=== PATIENT | female | born 1970 | race Caucasian/White ===

== ENCOUNTER 2022-02-06 01:52 | Emergency (ER) | payer BC ==
[2022-02-06] MEDS ORDERED: Hydromorphone 1 mg/ml Injection IV ONE (02:09)
[2022-02-06] MEDS ORDERED: Sodium Chloride 0.9% 1000 ML 1,000 ML IV STA (02:09)
--- NOTE | 2022-02-06 02:09 | ERPHSYRPT ---
- History of Present Illness Time Seen by Provider: 02/06/22 02:06 Historian: patient, EMS Exam Limitations: no limitations Physician History: This is a 51-year-old overweight white female who had relatively sudden onset of abdominal pain that is generalized in location and associated vomiting x1. She has never had anything like this before. Patient has had a cholecystectomy in the past. All her other organs are in tact. Patient denies chest pain. She denies shortness of breath. She has bilateral flank pain as well. EMS provided the patient with intravenous Zofran in route to the hospital Timing/Duration: today Activities at Onset: none Quality: cramping, sharpness, stabbing Abdominal Pain Onset Location: generalized abdomen Pain Radiation: back Severity of Pain-Max: moderate Severity of Pain-Current: moderate Modifying Factors: Improves With: vomiting Associated Symptoms: nausea, vomiting, No chest pain, No diarrhea, No headache Previous symptoms: no prior history Allergies/Adverse Reactions: ciprofloxacin Adverse Reaction (Severe, Verified 02/06/22 02:16) Joint Aches effects mobility levofloxacin [From Levaquin] Adverse Reaction (Severe, Verified 02/06/22 02:16) Swelling of Joints affects mobility Home Medications: Amlodipine Besylate/Benazepril [Amlodipine-Benazepril 10-40 mg] 10 mg PO DAILY 02/06/22 [History] Duloxetine HCl 20 mg PO BID 02/06/22 [History] Empagliflozin/Metformin HCl [Synjardy 12.5-1,000 mg Tablet] 12.5 mg PO DAILY 02/06/22 [History] Meloxicam 7.5 mg PO DAILY 02/06/22 [History] Montelukast Sodium 10 mg [Singulair 10 MG] 10 mg PO DAILY 02/06/22 [History] hydroCHLOROthiazide [Hydrochlorothiazide] 12.5 mg PO DAILY 02/06/22 [History] Travel Risk - International Travel Have you traveled outside of the country in past 3 weeks: No - Coronavirus Screening Are you exhibiting any of the following symptoms?: No Close contact with a COVID-19 positive Pt in past 14-21 Days: No - Review of Systems Constitutional: No Symptoms Eyes: No Symptoms Ears, Nose, & Throat: No Symptoms Respiratory: No Symptoms Cardiac: No Symptoms Abdominal/Gastrointestinal: Abdominal Pain, Nausea, Vomiting, No Diarrhea, No Constipation Genitourinary Symptoms: No Symptoms Musculoskeletal: No Symptoms Skin: No Symptoms Neurological: No Symptoms Psychological: No Symptoms Endocrine: No Symptoms Hematologic/Lymphatic: No Symptoms Immunological/Allergic: No Symptoms All Other Systems: Reviewed and Negative - Past Medical History Pertinent Past Medical History: Yes - Past Surgical History Past Surgical History: Yes Gastrointestinal: Cholecystectomy - Nursing Vital Signs Nursing Vital Signs: Initial Vital Signs Temperature 98.5 F 02/06/22 01:56 Pulse Rate 70 02/06/22 01:56 Respiratory Rate 20 02/06/22 01:56 Blood Pressure 128/100 02/06/22 01:56 O2 Sat by Pulse Oximetry 99 02/06/22 01:56 Pain Scale Pain Intensity 0 - Physical Exam General Appearance: mild distress, moderate distress, alert, anxiety, obese Eye Exam: PERRL/EOMI, eyes nml inspection Ears, Nose, Throat Exam: normal ENT inspection, moist mucous membranes Neck Exam: normal inspection, non-tender, supple, full range of motion Respiratory Exam: normal breath sounds, lungs clear, airway intact, No chest tenderness, No respiratory distress Cardiovascular Exam: regular rate/rhythm, normal heart sounds, normal peripheral pulses Gastrointestinal/Abdomen Exam: soft, normal bowel sounds, tenderness, guarding (And realized) Pelvic Exam: not done Rectal Exam: not done Back Exam: normal inspection, normal range of motion, No CVA tenderness, No vertebral tenderness Extremity Exam: normal inspection, normal range of motion, pelvis stable Neurologic Exam: alert, oriented x 3, cooperative, supervisor cold rolling II-XII nml as tested, normal mood/affect, sensation nml Skin Exam: normal color, warm, dry Lymphatic Exam: No adenopathy SpO2 Interpretation: normal O2 Delivery: Room Air - Course Nursing assessment & vital signs reviewed: Yes Ordered Tests: Active Orders 24 hr Category Date Time Status IV Insertion STAT Care 02/06/22 02:09 Active ABDOMEN AND PELVIS W/0 CONTRAS [CT] Stat Exams 02/06/22 03:21 Taken AMYLASE Stat Lab 02/06/22 02:25 Completed CBC W DIFF Stat Lab 02/06/22 02:25 Completed CMP Stat Lab 02/06/22 02:25 Completed HCG QUALITATIVE,SERUM Stat Lab 02/06/22 02:49 Completed LIPASE Stat Lab 02/06/22 02:25 Completed Lactic Acid Stat Lab 02/06/22 02:09 Completed Medication Summary Generic Name Dose Route Start Last Admin Trade Name Pratibha PRN Reason Stop Dose Admin Sodium Chloride 500 mls @ 500 mls/hr 02/06/22 05:36 02/06/22 05:37 Sodium Chloride 0.9% 500 Ml IV 02/06/22 06:35 500 mls/hr .Q1H ONE Administration Discontinued Medications Generic Name Dose Route Start Last Admin Trade Name Pratibha PRN Reason Stop Dose Admin Hydromorphone HCl 1 mg 02/06/22 02:09 02/06/22 02:28 Hydromorphone 1 Mg/1ml Inj 1 Mg/Ml Syringe IV 02/06/22 02:10 1 mg STAT ONE Administration Hydromorphone HCl Confirm 02/06/22 02:15 Hydromorphone 1 Mg/1ml Inj 1 Mg/Ml Syringe Administered 02/06/22 02:16 Dose 1 mg .ROUTE .STK-MED ONE Sodium Chloride 1,000 mls @ 999 mls/hr 02/06/22 02:09 02/06/22 03:55 Sodium Chloride 0.9% 1000 Ml IV 02/06/22 03:09 Infused .Q1H1M STA Infusion Sodium Chloride Confirm 02/06/22 02:15 Sodium Chloride 0.9% 1000 Ml Administered 02/06/22 02:16 Dose 1,000 mls @ ud .ROUTE .STK-MED ONE Sodium Chloride Confirm 02/06/22 05:33 Sodium Chloride 0.9% 500 Ml Administered 02/06/22 05:34 Dose 500 mls @ ud IV .STK-MED ONE Ketorolac Tromethamine Confirm 02/06/22 06:17 Ketorolac Tromethamine 30 Mg/Ml Inj Administered 02/06/22 06:18 Dose 30 mg .ROUTE .STK-MED ONE Metronidazole 500 mg 02/06/22 06:11 02/06/22 06:14 Metronidazole 500 Mg Tablet PO 02/06/22 06:12 500 mg STAT ONE Administration Metronidazole Confirm 02/06/22 06:12 Metronidazole 500 Mg Tablet Administered 02/06/22 06:13 Dose 500 mg .ROUTE .STK-MED ONE Lab/Rad Data: Laboratory Result Diagrams 02/06/22 02:25 02/06/22 02:25 Laboratory Results 03/19/22 03/19/22 03/19/22 Range/Units 04:39 02:49 02:25 WBC (4.0-10.5) K/mm3 RBC (4.1-5.4) M/mm3 Hgb (12.0-16.0) gm/dl Hct (35-47) % MCV (78-100) fl MCH (26-32) pg MCHC (32-36) g/dl RDW (11.5-14.0) % Plt Count (150-450) K/mm3 MPV (7.5-11.0) fl Gran % (36.0-66.0) % Eos # (Auto) (0-0.5) Absolute Lymphs (auto) (1.0-4.6) Absolute Monos (auto) (0.0-1.3) Lymphocytes % (24.0-44.0) % Monocytes % (0.0-12.0) % Eosinophils % (0.00-5.0) % Basophils % (0.0-0.4) % Absolute Granulocytes (1.4-6.9) Basophils # (0-0.4) Sodium 137 (137-145) mmol/L Potassium 3.4 L (3.5-5.1) mmol/L Chloride 104 (98-107) mmol/L Carbon Dioxide 20 L (22-30) mmol/L Anion Gap 16.7 H (5-15) MEQ/L BUN 18 H (7-17) mg/dL Creatinine 0.59 (0.52-1.04) mg/dL Estimated GFR > 60.0 ML/MIN Glucose 144 H (74-106) mg/dL Lactic Acid (0.4-2.0) Calcium 9.3 (8.4-10.2) mg/dL Total Bilirubin 0.50 (0.2-1.3) mg/dL AST 23 (14-36) U/L ALT 34 (0-35) U/L Alkaline Phosphatase 48 (38-126) U/L Serum Total Protein 7.1 (6.3-8.2) g/dL Albumin 4.3 (3.5-5.0) g/dL Amylase 60 (30-110) U/L Lipase 206 (23-300) U/L Serum , Qual NEGATIVE (Negative) Urinalys Dipstick Clnc MAIN LAB Urine Color YELLOW (YELLOW) Urine Appearance CLEAR (CLEAR) Urine pH 6.0 (5-6) Ur Specific [place] 1.020 (1.005-1.025) POC Urine Protein Conf NEGATIVE (Negative) Urine Ketones MODERATE-40 (NEGATIVE) Urine Nitrite NEGATIVE (NEGATIVE) Urine Bilirubin NEGATIVE (NEGATIVE) Urine Urobilinogen 0.2 (0-1) mg/dL Urine Leukocytes NEGATIVE (NEGATIVE) Urine WBC (Auto) NONE (0-5) /HPF Urine RBC (Auto) NONE (0-2) /HPF U Epithel Cells (Auto) NONE (FEW) /HPF Urine Bacteria (Auto) NONE (NEGATIVE) /HPF Urine RBC NEGATIVE (0-5) Akbar/ul Ur Culture Indicated? NO Urine Glucose 500 (NEGATIVE) mg/dL 02/06/22 02/06/22 Range/Units 02:25 02:09 WBC 7.2 (4.0-10.5) K/mm3 RBC 4.90 (4.1-5.4) M/mm3 Hgb 13.9 (12.0-16.0) gm/dl Hct 40.8 (35-47) % MCV 83.3 (78-100) fl MCH 28.4 (26-32) pg MCHC 34.1 (32-36) g/dl RDW 13.8 (11.5-14.0) % Plt Count 301 (150-450) K/mm3 MPV 10.5 (7.5-11.0) fl Gran % 72.9 H (36.0-66.0) % Eos # (Auto) 0.11 (0-0.5) Absolute Lymphs (auto) 1.30 (1.0-4.6) Absolute Monos (auto) 0.52 (0.0-1.3) Lymphocytes % 18.2 L (24.0-44.0) % Monocytes % 7.3 (0.0-12.0) % Eosinophils % 1.5 (0.00-5.0) % Basophils % 0.1 (0.0-0.4) % Absolute Granulocytes 5.21 (1.4-6.9) Basophils # 0.01 (0-0.4) Sodium (137-145) mmol/L Potassium (3.5-5.1) mmol/L Chloride (98-107) mmol/L Carbon Dioxide (22-30) mmol/L Anion Gap (5-15) MEQ/L BUN (7-17) mg/dL Creatinine (0.52-1.04) mg/dL Estimated GFR ML/MIN Glucose (74-106) mg/dL Lactic Acid 1.2 (0.4-2.0) Calcium (8.4-10.2) mg/dL Total Bilirubin (0.2-1.3) mg/dL AST (14-36) U/L ALT (0-35) U/L Alkaline Phosphatase (38-126) U/L Serum Total Protein (6.3-8.2) g/dL Albumin (3.5-5.0) g/dL Amylase (30-110) U/L Lipase (23-300) U/L Serum , Qual (Negative) Urinalys Dipstick Clnc Urine Color (YELLOW) Urine Appearance (CLEAR) Urine pH (5-6) Ur Specific [place] (1.005-1.025) POC Urine Protein Conf (Negative) Urine Ketones (NEGATIVE) Urine Nitrite (NEGATIVE) Urine Bilirubin (NEGATIVE) Urine Urobilinogen (0-1) mg/dL Urine Leukocytes (NEGATIVE) Urine WBC (Auto) (0-5) /HPF Urine RBC (Auto) (0-2) /HPF U Epithel Cells (Auto) (FEW) /HPF Urine Bacteria (Auto) (NEGATIVE) /HPF Urine RBC (0-5) Akbar/ul Ur Culture Indicated? Urine Glucose (NEGATIVE) mg/dL - Progress Progress: improved Progress Note: 02/06/22 06:24 CAT scan of the abdomen and pelvis shows minimal soft tissue stranding or minimal fluid low pelvis. Focal nonair-containing soft tissue accentuation of the cecum near the terminal ileum is nonspecific measuring 3.9 cm. Minor distal colonic diverticuli. Nodules left lower lobe. Consider optional CT chest in 12 months. The above findings were discussed in detail with the patient and her spouse. Medical decision making: This patient states that her abdominal pain has improved. The CAT scan shows some nonspecific inflammatory, possible infectious findings. In addition there is nonspecific soft tissue accentuation of the cecum near the terminal ileum. We will place her on Flagyl antibiotics orally. Patient states that she has had Percocet in the past and would use this medication. She wants to avoid Stov[place]/hydrocodone medications. She will follow up with her primary care provider for repeat CAT scan of the abdomen pelvis and repeat CAT scan of the chest to assess lung nodules. Patient did not offer that she had a colonoscopy approximately a year to year and a half ago which showed multiple polyps. Patient was advised to contact her primary care physician on 02/08/2022 to make an appointment for follow-up and to discuss the CAT scan findings and to make arrangements for follow-up colonoscopy and repeat CAT scans as indicated. Counseled pt/family regarding: lab results, diagnosis, need for follow-up, rad results - Departure Departure Disposition: Home Clinical Impression: Free fluid in pelvis, Cecal lesion Condition: Stable Critical Care Time: No Referrals: SAMREEN SEPULVEDA MD [Primary Care Provider] - Follow up/PCP as directed Additional Instructions: Drink plenty of fluids. Take your medication as prescribed. Call your prescribing physician's office on 02/08/2022 to make an appointment for follow-up and discuss the CAT scan findings and to arrange repeat colonoscopy and CAT scans as indicated. Prescriptions: Oxycodone HCl/Acetaminophen [Percocet 5-325 mg Tablet] 1 each PO Q8H PRN PRN #6 tablet MDD 3 PRN Reason: Moderate To Severe Pain Metronidazole 500 mg [Flagyl 500 MG] 500 mg PO TID #21 tablet
[2022-02-06] MEDS ORDERED: Hydromorphone 1 mg/ml Injection ONE (02:15)
[2022-02-06] MEDS ORDERED: Sodium Chloride 0.9% 1000 ML 1,000 ML ONE (02:15)
[2022-02-06 02:33] LABS: Absolute Neutrophil Ct (ANC) 5.21 (1.4-6.9); Basophil (Absolute #) 0.01 (0-0.4); Eosinophil % 1.5 % (0.00-5.0); Eosinophil (Absolute #) 0.11 (0-0.5); Hematocrit 40.8 % (35-47); Hemoglobin 13.9 gm/dl (12.0-16.0); Lymphocytes % 18.2 % (24.0-44.0); Mean Cell Volume 83.3 fl (78-100); Mean Corpuscular Hemoglobin 28.4 pg (26-32); Mean Corpuscular Hgb Concent. 34.1 g/dl (32-36); Mean Platelet Volume 10.5 fl (7.5-11.0); Monocyte (Absolute #) 0.52 (0.0-1.3); Monocytes % 7.3 % (0.0-12.0); Neutrophil % 72.9 % (36.0-66.0); Platelet Count 301 K/mm3 (150-450); Red Cell Distribution Width 13.8 % (11.5-14.0); White Blood Count 7.2 K/mm3 (4.0-10.5)
[2022-02-06 02:46] LABS: ALBUMIN 4.3 g/dL (3.5-5.0); ALKALINE PHOSPHATASE 48 U/L (38-126); AMYLASE 60 U/L (30-110); ANION GAP 16.7 MEQ/L (5-15); BLOOD UREA NITROGEN 18 mg/dL (7-17); CHLORIDE 104 mmol/L (98-107); Calcium 9.3 mg/dL (8.4-10.2); Carbon Dioxide 20 mmol/L (22-30); Creatinine 1 0.59 mg/dL (0.52-1.04); EST GLOMERULAR FILTRATION RATE > 60.0 ML/MIN; Glucose 144 mg/dL (74-106); LIPASE 206 U/L (23-300); Potassium 3.4 mmol/L (3.5-5.1); SGOT/AST 23 U/L (14-36); SGPT/ALT 34 U/L (0-35); SODIUM 137 mmol/L (137-145); Total Protein 7.1 g/dL (6.3-8.2)
[2022-02-06 05:01] VITALS: O2SAT 97
[2022-02-06 05:23] LABS: Appearance CLEAR (CLEAR); Bilirubin NEGATIVE (NEGATIVE); Dipstick done @ ? MAIN LAB; Glucose 500 mg/dL (NEGATIVE); Ketones MODERATE-40 (NEGATIVE); Nitrite NEGATIVE (NEGATIVE); Protein,Urine Dip NEGATIVE (Negative); RBC NEGATIVE Ery/ul (0-5); Urobilinogen 0.2 mg/dL (0-1)
[2022-02-06] MEDS ORDERED: Sodium Chloride 0.9% 500 ML 500 ML IV ONE ×2 (05:33→05:36)
[2022-02-06] MEDS ORDERED: Flagyl 500 MG PO ONE (06:11)
[2022-02-06] MEDS ORDERED: Flagyl 500 MG ONE (06:12)
[2022-02-06] MEDS ORDERED: TORAdol 30 mg Injection ONE (06:17)
[2022-02-06 06:25] VITALS: BP 100/68; PULSE 86
[2022-02-06] MEDS ORDERED: TORAdol 30 mg Injection IV ONE (06:32)
--- NOTE | 2022-02-06 09:00 | XRAY ---
Indication: Abdomen pain and nausea. Multiple contiguous axial images obtained through the abdomen and pelvis without contrast. Comparison: None Lung bases demonstrates small left lower lobe calcified granuloma. No infiltrate or effusion. Heart not enlarged. Noncontrasted stomach and bowel loops nonobstructed with normal appendix. Minimal proximal sigmoid diverticulosis. Previous cholecystectomy. No free fluid/air. Left mid kidney demonstrates nonobstructing punctate calculus. Remaining liver, pancreas, spleen, adrenal glands, kidneys, ureters, bladder, uterus, and aorta appear unremarkable for noncontrast exam. Osseous structures intact. No ventral or inguinal hernias. Impression: 1. Nonobstructing left renal punctate calculus and minimal sigmoid diverticulosis. 2. Remaining CT abdomen/pelvis without contrast exam is negative. Comment: Preliminary interpretation made by [facility]. No critical discrepancy.
== END 2022-02-06 06:45 ==
LOC: ED 01:52
DX: K63.89 Other specified diseases of intestine (principal); R18.8 Other ascites; R10.84 Generalized abdominal pain; R11.2 Nausea with vomiting, unspecified; Z79.891 Long term (current) use of opiate analgesic; Z79.899 Other long term (current) drug therapy
CPT/HCPCS: 36000; 36415; 74176; 80053; 81015; 81025; 82150; 83605; 83690; 85025; 96360; 96361; 96374; 96375; 99284; J1170; J1885; A9270-GY

== ENCOUNTER 2022-07-30 11:24 | Emergency (ER) | payer BC ==
--- NOTE | 2022-07-30 12:07 | XRAY ---
Indication: Headache 1 month. History of migraines. Multiple contiguous axial images obtained through the head without contrast. Comparison: None Age-appropriate global atrophy. Tiny remote lacunar infarct left basal ganglia. No acute intracranial hemorrhage, abnormal extra-axial fluid collection, or mass effect. Fourth ventricle is midline without hydrocephalus. Jones-white matter differentiation preserved. Bony calvarium intact. Visualized paranasal sinuses and mastoid air cells are clear. Impression: Tiny remote lacunar infarct left basal ganglia. Remaining CT head without contrast exam is negative.
--- NOTE | 2022-07-30 12:20 | ERPHSYRPT ---
- History of Present Illness Source: patient Exam Limitations: no limitations Patient Subjective Stated Complaint: C/O headache and eye pressure. States had COVID on 06/28/22 and the headache has never resolved. States she has been to see Dr. Sepulveda 2-3 times since being diagnosed with COVID; the last time was yesterday, 07/29/22. Patient also went to the [facility] 2 days ago on 07/28/22. Triage Nursing Assessment: Patient ambulated back to ED without difficulties. S He is alert and oriented. No SOB. Pupils equal. Denies head injury, fall, nausea, vomiting. Skin tone normal. Denies any changes in her vision. Physician History: 51 yo WF w JACOBSON x 1month. Pt developed pain after being diagnosed w CV19. Pain is R occipital/temporal and is 8 on scale. It is described as throbbing, and light seems to make the pain worse. She has nausea wo vomiting/fever. No focal weakness is described. Pt has a h/o MGHA but has not had one in many years. T rauma is denied. Timing/Duration: other (1 month) Quality: throbbing Head Pain Location: temporal (Right), occipital Recent Head Trauma: occasional headaches Modifying Factors: Improves With: exposure to light (Worse w light) Associated Symptoms: sensitive to light, No confusion, No dizziness, No fatigue, No facial pain, No fever/chills, No flushing, No light-headedness, No loss of consciousness, No nausea/vomiting, No nasal congestion, No nasal drainage, No neck pain, No numbness in legs/feet, No rash, No sweating, No scotoma, No seizures, No sinus infection, No speech problems, No stiff neck, No trouble walking, No vision changes, No visual disturbance, No weakness Previous symptoms: same symptoms as today Allergies/Adverse Reactions: clonazepam [From Klonopin] Allergy (Verified 07/30/22 11:35) ciprofloxacin Adverse Reaction (Severe, Verified 07/30/22 11:35) Joint Aches effects mobility levofloxacin [From Levaquin] Adverse Reaction (Severe, Verified 07/30/22 11:35) Swelling of Joints affects mobility Home Medications: Amlodipine Besylate/Benazepril [Amlodipine-Benazepril 10-40 mg] 10 mg PO DAILY 02/06/22 [History] Duloxetine HCl 20 mg PO BID 02/06/22 [History] Empagliflozin/Metformin HCl [Synjardy 12.5-1,000 mg Tablet] 12.5 mg PO DAILY [History] Meloxicam 7.5 mg PO DAILY 02/06/22 [History] Montelukast Sodium 10 mg [Singulair 10 MG] 10 mg PO DAILY 02/06/22 [History] hydroCHLOROthiazide [Hydrochlorothiazide] 12.5 mg PO DAILY 02/06/22 [History] Empagliflozin/Metformin HCl [Synjardy Xr 12.5-1,000 mg Tab] 1 tab PO DAILY 08/12 [History] Metoprolol Succinate 25 mg Xl* [Toprol-Xl 25MG Tablets] 1 tab PO DAILY 07/30/22 [History] Tizanidine HCl 4 mg [Zanaflex 4 MG] 1 tab PO Q8H PRN PRN 07/30/22 [History] Hx Tetanus, Diphtheria Vaccination/Date Given: Yes Hx Influenza Vaccination/Date Given: No Hx Pneumococcal Vaccination/Date Given: No Immunizations Up to Date: Yes Travel Risk - International Travel Have you traveled outside of the country in past 3 weeks: No - Coronavirus Screening Are you exhibiting any of the following symptoms?: Yes Symptoms: Headaches/Body Aches/Fatigue Close contact with a COVID-19 positive Pt in past 14-21 Days: No - Vaccine Status Have you recieved a Covid-19 vaccination: Yes Language Pathologist: Moderna - Vaccination Dates Date of 2cond Vaccination (if applicable): 2021 - Review of Systems Constitutional: No Symptoms Eyes: No Symptoms Ears, Nose, & Throat: No Symptoms Respiratory: No Symptoms Cardiac: No Symptoms Abdominal/Gastrointestinal: No Symptoms Genitourinary Symptoms: No Symptoms Musculoskeletal: No Symptoms Skin: No Symptoms Neurological: No Symptoms, Headache Psychological: No Symptoms Endocrine: No Symptoms Hematologic/Lymphatic: No Symptoms Immunological/Allergic: No Symptoms - Past Medical History Pertinent Past Medical History: Yes Neurological History: Migraines ENT History: No Pertinent History Cardiac History: Hypertension Respiratory History: No Pertinent History Endocrine Medical History: Diabetes Type II Musculoskeletal History: No Pertinent History GI Medical History: Gallbladder Disease, Polyps History: No Pertinent History Psycho-Social History: Anxiety Female Reproductive Disorders: Endometriosis Other Medical History: vaginal prolapse, retrocele, cystocele - Past Surgical History Past Surgical History: Yes Neuro Surgical History: No Pertinent History Cardiac: No Pertinent History Respiratory: No Pertinent History Gastrointestinal: Cholecystectomy Genitourinary: Other Musculoskeletal: No Pertinent History Female Surgical History: No Pertinent History Other Surgical History: cystocele, retrocele - Social History Smoking Status: Never smoker Exposure to second hand smoke: No Drug Use: none Patient Lives Alone: No Significant Family History: no pertinent family hx - Nursing Vital Signs Nursing Vital Signs: Initial Vital Signs Temperature 98.2 F 07/30/22 11:36 Pulse Rate 68 07/30/22 11:36 Respiratory Rate 16 07/30/22 11:36 Blood Pressure 129/94 07/30/22 11:36 O2 Sat by Pulse Oximetry 97 07/30/22 11:36 Pain Scale Pain Intensity 4 - Physical Exam General Appearance: no apparent distress Eye Exam: PERRL/EOMI, eyes nml inspection, other (Optic disc's sharp) Ears, Nose, Throat Exam: normal ENT inspection, TMs normal, pharynx normal, moist mucous membranes Neck Exam: normal inspection, non-tender, supple, full range of motion, No meningismus, No mass, No Brudzinski, No Kernig's, No carotid bruit Respiratory Exam: normal breath sounds, lungs clear, airway intact Cardiovascular Exam: regular rate/rhythm, normal heart sounds, normal peripheral pulses, capillary refill <2 sec, No murmur Gastrointestinal/Abdominal Exam: soft, normal bowel sounds, No tenderness Back Exam: normal inspection, normal range of motion, No CVA tenderness, No vertebral tenderness Extremity Exam: normal inspection, normal range of motion, pelvis stable Mental Status Exam: alert, oriented x 3, cooperative salesperson trailers and motor homes Exam: normal hearing, normal speech, PERRL, No abnormal eye position, No abnormal gag reflex, No abnormal pupil position, No facial asymmetry Coordination/Gait Exam: normal finger to nose, normal gait, normal cerebellar function, negative Romberg's sign Motor/Sensory Exam: no motor deficit, no sensory deficit, no pronator drift, negative Babinski's sign DTR Exam: bicep (R): 2+, bicep (L): 2+ Skin Exam: normal color, warm, dry, No rash Lymphatic Exam: No adenopathy SpO2 Interpretation: normal SpO2: 97 - Course Nursing assessment & vital signs reviewed: Yes - CT Exams Head CT Interpretation: Discussed w/radiologist (Tiny remote infarct L basal ganglia) Ordered Tests: Active Orders 24 hr Category Date Time Status HEAD WITHOUT CONTRAST [CT] Stat Exams 07/30/22 11:42 Completed CBC W DIFF Stat Lab 07/30/22 13:28 Completed Medication Summary Discontinued Medications Generic Name Dose Route Start Last Admin Trade Name Leonardoq PRN Reason Stop Dose Admin Hydromorphone HCl 1 mg 07/30/22 15:31 07/30/22 15:44 Hydromorphone 1 Mg/1ml Inj 1 Mg/Ml Syringe IM 07/30/22 15:32 1 mg STAT ONE Administration Hydromorphone HCl Confirm 07/30/22 15:40 Hydromorphone 1 Mg/1ml Inj 1 Mg/Ml Syringe Administered 07/30/22 15:41 Dose 1 mg .ROUTE .STK-MED ONE Ketorolac Tromethamine 30 mg 07/30/22 12:28 07/30/22 12:44 Ketorolac Tromethamine 30 Mg/Ml Inj IM 07/30/22 12:29 30 mg STAT ONE Administration Ketorolac Tromethamine Confirm 07/30/22 12:43 Ketorolac Tromethamine 30 Mg/Ml Inj Administered 07/30/22 12:44 Dose 30 mg .ROUTE .STK-MED ONE Prochlorperazine Edisylate 10 mg 07/30/22 12:29 07/30/22 12:44 Prochlorperazine Edisylate 10 Mg/2 Ml Vial IM 07/30/22 12:30 10 mg STAT ONE Administration Prochlorperazine Edisylate Confirm 07/30/22 12:43 Prochlorperazine Edisylate 10 Mg/2 Ml Vial Administered 07/30/22 12:44 Dose 10 mg .ROUTE .STK-MED ONE Sumatriptan Succinate 6 mg 07/30/22 14:31 07/30/22 14:55 Sumatriptan Succinate 6 Mg/0.5 Ml Vial SQ 07/30/22 14:32 6 mg STAT STA Administration Sumatriptan Succinate Confirm 07/30/22 14:45 Sumatriptan Succinate 6 Mg/0.5 Ml Vial Administered 07/30/22 14:46 Dose 6 mg SQ .STK-MED ONE Lab/Rad Data: Laboratory Result Diagrams 07/30/22 13:28 07/30/22 13:28 Laboratory Results 07/30/22 07/30/22 07/30/22 Range/Units 13:28 13:28 13:28 WBC 5.3 (4.0-10.5) x10^3/uL RBC 5.00 (4.1-5.4) x10^6/uL Hgb 13.9 (12.0-16.0) g/dL Hct 42.0 (35-47) % MCV 84.0 (78-100) fL MCH 27.8 (26-32) pg MCHC 33.1 (32-36) g/dL RDW 13.2 (11.5-14.0) % Plt Count 288 (150-450) x10^3/uL MPV 10.4 (7.5-11.0) fL Gran % 54.9 (36.0-66.0) % Immature Gran % (Auto) 0.2 (0.00-0.4) % Nucleat RBC Rel Count 0.4 H (0.00-0.1) % Eos # (Auto) 0.12 (0-0.5) x10^3/uL Immature Gran # (Auto) 0.01 (0.00-0.03) x10^3u/L Absolute Lymphs (auto) 1.77 (1.0-4.6) x10^3/uL Absolute Monos (auto) 0.48 (0.0-1.3) x10^3/uL Absolute Nucleated RBC 0.02 H (0.00-0.01) x10^3u/L Lymphocytes % 33.1 (24.0-44.0) % Monocytes % 9.0 (0.0-12.0) % Eosinophils % 2.2 (0.00-5.0) % Basophils % 0.6 (0.0-0.4) % Absolute Granulocytes 2.93 (1.4-6.9) x10^3/uL Basophils # 0.03 (0-0.4) x10^3/uL Sodium Direct 140 (138-146) mmol/L Potassium 3.9 (3.5-4.9) mmol/L Chloride 104 (98-109) mmol/L Carbon Dioxide 27 (24-29) mmol/L Venous BUN 21 (8-26) mg/dL Creatinine 0.5 L (0.6-1.3) mg/dL Glucose 145 H (70-105) mg/dL Ionized Calcium 1.18 (1.12-1.32) mmol/L Influenza Type A Ag NEGATIVE (NEGATIVE) Influenza Type B Ag NEGATIVE (NEGATIVE) RSV (PCR) NEGATIVE (Negative) SARS-CoV-2 (PCR) NEGATIVE (NEGATIVE) - Progress Progress Note: 07/30/22 15:34 30mg IM Toradol/10mg IM Compazine w mild improvement in pain Pain escalated, so 6mg sq Imitrex given which seemed to increase her pain Discussed risks/benefits of lumbar puncture w pt and she refused 07/30/22 16:29 Pt's pain greatly improved w 1mg IM dilaudid 07/30/22 17:26 Pt wo fever/focal weakness/nuchal rigidity during entire visit. Optic disc's sharp. Counseled pt/family regarding: lab results, diagnosis, need for follow-up, rad results - Departure Departure Disposition: Home Clinical Impression: Migraine Condition: Stable Critical Care Time: No Referrals: SAMREEN SEPULVEDA MD [Primary Care Provider] - Follow up/PCP as directed Instructions: Headache, Adult (DC) Additional Instructions: Follow up with Dr. Sepulveda on Tuesday Return to ER for increasing pain, temperature greater than 100.5, or focal weakness
[2022-07-30] MEDS ORDERED: TORAdol 30 mg Injection IM ONE (12:28)
[2022-07-30] MEDS ORDERED: Compazine 10 MG/2 ML IM ONE (12:29)
[2022-07-30] MEDS ORDERED: Compazine 10 MG/2 ML ONE (12:43)
[2022-07-30] MEDS ORDERED: TORAdol 30 mg Injection ONE (12:43)
[2022-07-30 13:38] LABS: Absolute Neutrophil Ct (ANC) 2.93 x10^3/uL (1.4-6.9); Basophil (Absolute #) 0.03 x10^3/uL (0-0.4); Eosinophil % 2.2 % (0.00-5.0); Eosinophil (Absolute #) 0.12 x10^3/uL (0-0.5); Hemoglobin 13.9 g/dL (12.0-16.0); Lymphocyte (Absolute #) 1.77 x10^3/uL (1.0-4.6); Lymphocytes % 33.1 % (24.0-44.0); Mean Corpuscular Hemoglobin 27.8 pg (26-32); Mean Corpuscular Hgb Concent. 33.1 g/dL (32-36); Mean Platelet Volume 10.4 fL (7.5-11.0); Monocyte (Absolute #) 0.48 x10^3/uL (0.0-1.3); Neutrophil % 54.9 % (36.0-66.0); Platelet Count 288 x10^3/uL (150-450); Red Cell Distribution Width 13.2 % (11.5-14.0); White Blood Count 5.3 x10^3/uL (4.0-10.5)
[2022-07-30 14:01] LABS: INFLUENZA A NEGATIVE (NEGATIVE); INFLUENZA B NEGATIVE (NEGATIVE); RESPIRATORY SYNCTIAL VIRUS NEGATIVE (Negative); SARS-CoV-2 Xpert Express NEGATIVE (NEGATIVE)
[2022-07-30 14:25] LABS: ISTAT K 3.9 mmol/L (3.5-4.9)
[2022-07-30 14:27] LABS: ISTAT CREA 0.5 mg/dL (0.6-1.3)
[2022-07-30] MEDS ORDERED: Imitrex 6 MG/0.5 ML SQ STA (14:31)
[2022-07-30] MEDS ORDERED: Imitrex 6 MG/0.5 ML SQ ONE (14:45)
[2022-07-30] MEDS ORDERED: Hydromorphone 1 mg/ml Injection IM ONE (15:31)
[2022-07-30 15:36] VITALS: O2SAT 97
[2022-07-30] MEDS ORDERED: Hydromorphone 1 mg/ml Injection ONE (15:40)
[2022-07-30 16:26] VITALS: BP 134/74; PULSE 65
== END 2022-07-30 16:46 | disposition home or self-care (01) ==
LOC: ED 11:24
DX: G43.909 Migraine, unspecified, not intractable, without status migrainosus (principal); R11.0 Nausea; I10 Essential (primary) hypertension; E11.9 Type 2 diabetes mellitus without complications; Z79.84 Long term (current) use of oral hypoglycemic drugs; Z79.899 Other long term (current) drug therapy; Z86.16 Personal history of COVID-19
CPT/HCPCS: 0241U; 36415; 70450; 80047; 85025; 96372; 99284; J1170; J1885; J3030

== ENCOUNTER 2024-03-07 16:25 | Observation (INO) | payer BC ==
--- NOTE | 2024-03-07 16:55 | ERPHSYRPT ---
<CESIA DIAZ - Last Filed: 03/07/24 20:39> - History of Present Illness Source: patient Exam Limitations: no limitations Patient Subjective Stated Complaint: dizzy, low blood pressure 80/50, headache, weakness since 1030 Triage Nursing Assessment: patient is alert and oriented, ambulated with slow steady gait, speech is a little slow. no short of breath noted. Hx Tetanus, Diphtheria Vaccination/Date Given: Yes Hx Influenza Vaccination/Date Given: No Hx Pneumococcal Vaccination/Date Given: No Immunizations Up to Date: Yes <TIN LANDIN - Last Filed: 03/08/24 14:30> - History of Present Illness Time Seen by Provider: 03/07/24 16:27 Physician History: 53 years old with history of poorly controlled migraine, fibromyalgia presented in the ER with complains of headache starting around 10 AM today frontal and occipital area with associated dizziness and lightheadedness. Patient reports room spinning sensation with opening her eyes and better with resting and lying down. Denies associated numbness tingling or weakness. Reports nausea but no vomiting. She did not have any visual disturbance or difficulty speech. Reports her headache feels a little different than her routine and usually is not associated with dizziness. She has some sinus congestion and minimal nonproductive cough but no fever or chills. She checked her blood pressure e arlier and it was in the 80s, improved on its own on presentation in the ER in 120s. She feels weak fatigued tired and dehydrated. (TIN LANDIN) Allergies/Adverse Reactions: clonazepam [From Klonopin] Allergy (Verified 07/30/22 11:35) ciprofloxacin Adverse Reaction (Severe, Verified 07/30/22 11:35) Joint Aches effects mobility levofloxacin [From Levaquin] Adverse Reaction (Severe, Verified 07/30/22 11:35) Swelling of Joints affects mobility Home Medications: Montelukast Sodium 10 mg [Singulair 10 MG] 10 mg PO DAILY 02/06/22 [History] hydroCHLOROthiazide [Hydrochlorothiazide] 12.5 mg PO DAILY 02/06/22 [History] Amlodipine Besylate/Benazepril [Amlodipine-Benazepril 5-20 mg] 1 cap PO DAILY 03/07/24 [History] Duloxetine HCl 20 mg PO DAILY 03/07/24 [History] Empagliflozin [Jardiance] 10 mg PO DAILY 03/07/24 [History] Insulin Degludec [Tresiba Flextouch U-200] 30 units SQ HS 03/07/24 [History] Metoprolol Succinate 50 mg [Toprol Xl 50 MG] 50 mg PO DAILY 03/07/24 [History] Pregabalin 150 mg PO BID 03/07/24 [History] Semaglutide [Ozempic] 1 mg SQ WEEKLY 03/07/24 [History] Travel Risk - International Travel Have you traveled outside of the country in past 3 weeks: No - Emerging Infectious Disease Are you exhibiting symptoms associated with any current EIDs: No <TIN LANDIN - Last Filed: 03/08/24 14:30> - Review of Systems Constitutional: Fatigue, Weakness Eyes: No Symptoms Ears, Nose, & Throat: No Symptoms Respiratory: Cough Cardiac: No Symptoms Abdominal/Gastrointestinal: Nausea Genitourinary Symptoms: No Symptoms Musculoskeletal: Myalgias Neurological: Dizziness, Headache Psychological: No Symptoms Endocrine: No Symptoms Hematologic/Lymphatic: No Symptoms Immunological/Allergic: No Symptoms <TIN LANDIN - Last Filed: 03/08/24 14:30> - Past Medical History Pertinent Past Medical History: Yes Neurological History: Migraines ENT History: No Pertinent History Cardiac History: High Cholesterol, Hypertension Respiratory History: No Pertinent History Endocrine Medical History: Diabetes Type II Musculoskeletal History: No Pertinent History GI Medical History: GERD, Gallbladder Disease, Polyps History: No Pertinent History Psycho-Social History: Anxiety Female Reproductive Disorders: Endometriosis Other Medical History: vaginal prolapse, retrocele, cystocele - Past Surgical History Past Surgical History: Yes Neuro Surgical History: No Pertinent History Cardiac: No Pertinent History Respiratory: No Pertinent History Gastrointestinal: Cholecystectomy Genitourinary: Other Musculoskeletal: No Pertinent History Female Surgical History: Hysterectomy Other Surgical History: cystocele, retrocele Significant Family History: no pertinent family hx - Female History Hx Last Menstrual Period: hysterectomy Hx Now: No - Social History Smoking Status: Never smoker Exposure to second hand smoke: No Drug Use: none Patient Lives Alone: No <TIN LANDIN - Last Filed: 03/08/24 14:30> - Physical Exam General Appearance: no apparent distress, alert Eye Exam: PERRL/EOMI Ears, Nose, Throat Exam: normal ENT inspection, TMs normal, pharynx normal, moist mucous membranes Neck Exam: normal inspection, non-tender, supple, full range of motion Respiratory Exam: normal breath sounds, lungs clear Cardiovascular Exam: regular rate/rhythm, normal heart sounds Gastrointestinal/Abdominal Exam: soft, normal bowel sounds, No tenderness Back Exam: normal inspection, normal range of motion Extremity Exam: normal inspection, normal range of motion Mental Status Exam: alert, oriented x 3, cooperative sanitation worker Exam: normal hearing, normal speech, PERRL Coordination/Gait Exam: normal finger to nose, normal cerebellar function DTR Exam: bicep (R): 2+, bicep (L): 2+, knee (R): 2+, knee (L): 2+ Skin Exam: normal color SpO2 Interpretation: normal SpO2: 97 O2 Delivery: Room Air <TIN LANDIN - Last Filed: 03/08/24 14:30> - Nursing Vital Signs Nursing Vital Signs: Initial Vital Signs Temperature 98.7 F 03/07/24 16:25 Pulse Rate 85 03/07/24 16:25 Respiratory Rate 20 03/07/24 16:25 Blood Pressure 126/87 03/07/24 16:25 O2 Sat by Pulse Oximetry 97 03/07/24 16:25 Pain Scale Pain Intensity 8 - Course EKG Interpreted by Me: RATE (79), Sinus Rhythm, NORMAL AXIS, NORMAL INTERVALS, Non-specific ST Changes, Other (Nonspecific T wave changes) <NEAL LANDINMIR - Last Filed: 03/08/24 14:30> Ordered Tests: Active Orders 24 hr Category Date Time Status Call Admit Doctor for Orders ON ADMISSION Care 03/07/24 21:27 Active Executive Assistant STAT Care 03/07/24 16:51 Completed Code Status Order ROUTINE Care 03/07/24 21:27 Active EKG-ER Only STAT Care 03/07/24 16:50 Completed IV Insertion STAT Care 03/07/24 16:50 Completed Neuro Checks Q4H Care 03/07/24 21:27 Active Orthostatic Vital Signs STAT Care 03/07/24 16:[address] in Observation ROUTINE Care 03/07/24 21:27 Active Telemetry q6h Care 03/07/24 21:27 Active Consistent Carbohydrate Diet 1800 Calorie Diet 04/18/24 Breakfast Active CHEST 1 VIEW (PORTABLE) Stat Exams 03/07/24 16:50 Completed HEAD WITHOUT CONTRAST [CT] Stat Exams 03/07/24 16:51 Completed CBC W DIFF Stat Lab 03/07/24 17:00 Completed CMP Stat Lab 03/07/24 17:00 Completed Lactic Acid Stat Lab 03/07/24 16:50 Completed MAGNESIUM Stat Lab 03/07/24 17:00 Completed TROPONIN Q4H Lab 03/07/24 17:00 Completed TROPONIN Q4H Lab 03/07/24 21:00 Completed UA W/RFX UR CULTURE Stat Lab 03/07/24 19:28 Completed Medication Summary Generic Name Dose Route Start Last Admin Trade Name Freq PRN Reason Stop Dose Admin Acetaminophen 650 mg 03/07/24 22:08 03/08/24 14:13 Acetaminophen 325 Mg Tablet PO 04/06/24 22:07 650 mg Q4H PRN PRN Administration PAIN AND/OR FEVER Amlodipine Besylate 5 mg 03/08/24 10:00 03/08/24 09:09 Amlodipine Besylate 5 Mg Tablet PO 04/07/24 09:59 5 mg DAILY SAM Administration Benazepril HCl 20 mg 03/08/24 10:00 03/08/24 09:08 Benazepril Hcl 10 Mg Tablet PO 04/07/24 09:59 20 mg DAILY SAM Administration Enoxaparin Sodium 40 mg 03/08/24 10:00 03/08/24 09:07 Enoxaparin Sodium 40 Mg/0.4 Ml Syringe SQ 04/07/24 09:59 40 mg DAILY SAM Administration Hydrochlorothiazide 12.5 mg 03/08/24 10:00 03/08/24 09:07 Hydrochlorothiazide 25 Mg Tablet PO 04/07/24 09:59 12.5 mg DAILY SAM Administration Insulin Glargine 20 unit 03/08/24 00:17 03/08/24 00:28 Insulin Glargine 1 Unit SQ 04/06/24 21:59 20 unit HS SAM Administration Insulin Human Lispro 0 unit 03/07/24 22:08 Insulin Lispro 1 Unit SQ 04/06/24 22:07 UD PRN HYPERGLYCEMIA Metoprolol Succinate 50 mg 03/08/24 10:00 03/08/24 09:07 Metoprolol Succinate 50 Mg Tablet.Sa PO 04/07/24 09:59 50 mg DAILY SAM Administration Miscellaneous Information 1 each 03/08/24 07:00 Medication Intervention 1 Each Each 04/07/24 06:59 .RN TO CHECK SAM Montelukast Sodium 10 mg 03/08/24 10:00 03/08/24 09:09 Montelukast Sodium 10 Mg Tablet PO 04/07/24 09:59 10 mg DAILY SAM Administration Potassium Chloride 20 meq 03/09/24 10:00 Potassium Chloride Tab 10 Meq Tab PO 04/08/24 09:59 DAILY SAM Pregabalin 150 mg 03/08/24 00:11 03/08/24 09:07 Pregabalin 150 Mg Capsule PO 04/06/24 21:59 150 mg BID SAM Administration Discontinued Medications Generic Name Dose Route Start Last Admin Trade Name Pratibha PRN Reason Stop Dose Admin Acetaminophen 975 mg 03/07/24 16:52 03/07/24 17:36 Acetaminophen 325 Mg Tablet PO 03/07/24 16:53 975 mg STAT ONE Administration Acetaminophen Confirm 03/07/24 17:34 Acetaminophen 325 Mg Tablet Administered 03/07/24 17:35 Dose 975 mg .ROUTE .STK-MED ONE Diazepam 1 mg 03/08/24 14:02 Diazepam 10 Mg/2 Ml Disp.Syringe IV 03/08/24 14:03 ONCE ONE Diphenhydramine HCl 25 mg 03/07/24 16:52 03/07/24 17:37 Diphenhydramine Hcl 50 Mg/Ml Vial IV 03/07/24 16:53 25 mg STAT ONE Administration Diphenhydramine HCl Confirm 03/07/24 17:33 Diphenhydramine Hcl 50 Mg/Ml Vial Administered 03/07/24 17:34 Dose 50 mg .ROUTE .STK-MED ONE Sodium Chloride 1,000 mls @ 999 mls/hr 03/07/24 16:50 03/07/24 18:58 Sodium Chloride 0.9% 1000 Ml IV 03/07/24 17:50 Infused .Q1H1M STA Infusion Sodium Chloride Confirm 03/07/24 17:34 Sodium Chloride 0.9% 1000 Ml Administered 03/07/24 17:35 Dose 1,000 mls @ ud .ROUTE .STK-MED ONE Insulin Glargine 20 unit 03/08/24 22:00 Insulin Glargine 1 Unit SQ 04/07/24 21:59 HS SAM Insulin Glargine 20 unit 03/08/24 00:10 Insulin Glargine 1 Unit SQ 04/06/24 21:59 HS [facility] Meclizine HCl 25 mg 03/07/24 16:50 03/07/24 17:35 Meclizine Hcl 25 Mg Tablet PO 03/07/24 16:51 25 mg STAT ONE Administration Meclizine HCl Confirm 03/07/24 17:33 Meclizine Hcl 25 Mg Tablet Administered 03/07/24 17:34 Dose 25 mg .ROUTE .STK-MED ONE Metoclopramide HCl 10 mg 03/07/24 16:52 03/07/24 17:38 Metoclopramide Hcl 10 Mg/2 Ml Vial IV 03/07/24 16:53 10 mg STAT ONE Administration Metoclopramide HCl Confirm 03/07/24 17:34 Metoclopramide Hcl 10 Mg/2 Ml Vial Administered 03/07/24 17:35 Dose 10 mg .ROUTE .STK-MED ONE Potassium Chloride 40 meq 03/07/24 22:41 03/08/24 00:28 Potassium Chloride Tab 10 Meq Tab PO 03/07/24 22:42 Not Given STAT ONE Potassium Chloride 40 meq 03/08/24 11:46 03/08/24 14:14 Potassium Chloride Tab 10 Meq Tab PO 03/08/24 11:47 40 meq STAT ONE Administration Potassium Chloride 40 meq 03/08/24 14:15 Potassium Chloride Tab 10 Meq Tab PO 03/08/24 14:16 STAT ONE Pregabalin 150 mg 03/08/24 10:00 Pregabalin 150 Mg Capsule PO 04/07/24 09:59 BID [facility] Lab/Rad Data: Laboratory Result Diagrams 03/07/24 17:00 03/07/24 17:00 Laboratory Results 03/07/24 03/07/24 03/07/24 Range/Units 21:00 19:28 17:30 WBC (4.0-10.5) x10^3/uL RBC (4.1-5.4) x10^6/uL Hgb (12.0-16.0) g/dL Hct (35-47) % MCV (78-100) fL MCH (26-32) pg MCHC (32-36) g/dL RDW (11.5-14.0) % Plt Count (150-450) x10^3/uL MPV (7.5-11.0) fL Gran % (36.0-66.0) % Immature Gran % (Auto) (0.00-0.4) % Nucleat RBC Rel Count (0.00-0.1) % Eos # (Auto) (0-0.5) x10^3/uL Immature Gran # (Auto) (0.00-0.03) x10^3u/L Absolute Lymphs (auto) (1.0-4.6) x10^3/uL Absolute Monos (auto) (0.0-1.3) x10^3/uL Absolute Nucleated RBC (0.00-0.01) x10^3u/L Lymphocytes % (24.0-44.0) % Monocytes % (0.0-12.0) % Eosinophils % (0.00-5.0) % Basophils % (0.0-0.4) % Absolute Granulocytes (1.4-6.9) x10^3/uL Basophils # (0-0.4) x10^3/uL Sodium (135-145) mmol/L Potassium (3.5-5.1) mmol/L Chloride (98-107) mmol/L Carbon Dioxide (22-30) mmol/L Anion Gap (5-15) MEQ/L BUN (7-17) mg/dL Creatinine (0.52-1.04) mg/dL Estimated GFR ML/MIN Glucose (74-106) mg/dL Lactic Acid (0.4-2.0) Calcium (8.4-10.2) mg/dL Magnesium (1.6-2.3) mg/dL Total Bilirubin (0.2-1.3) mg/dL AST (14-36) U/L ALT (0-35) U/L Alkaline Phosphatase (38-126) U/L Troponin I < 0.012 (0.000-0.033) ng/mL Serum Total Protein (6.3-8.2) g/dL Albumin (3.5-5.0) g/dL Urine Color Yellow (Yellow) Urine Appearance Clear (Clear) Urine pH 5.5 (4.6-8.0) Ur Specific Sunshine >=1.030 A (1.005-1.030) Urine Protein Negative (Negative) Urine Glucose (UA) >=1000 A (Negative) mg/dL Urine Ketones Trace A (Negative) Urine Blood Negative (Negative) Urine Nitrite Negative (Negative) Urine Bilirubin Negative (Negative) Urine Urobilinogen 0.2 (0.2) mg/dL Ur Leukocyte Esterase Negative (Negative) U Hyaline Cast (Auto) NONE SEEN (0-2) /LPF Urine Microscopic RBC 0-2 (0-5) /HPF Urine Microscopic WBC 0-2 (0-5) /HPF Ur Epithelial Cells None Seen (None Seen) /HPF Urine Bacteria None Seen (None Seen) /HPF Urine Culture Reflexed NO (NO) Influenza Type A Ag NEGATIVE (NEGATIVE) Influenza Type B Ag NEGATIVE (NEGATIVE) RSV (PCR) NEGATIVE (NEGATIVE) SARS-CoV-2 (PCR) NEGATIVE (NEGATIVE) 03/07/24 03/07/24 03/07/24 Range/Units 17:00 17:00 17:00 WBC 6.8 (4.0-10.5) x10^3/uL RBC 5.07 (4.1-5.4) x10^6/uL Hgb 14.1 (12.0-16.0) g/dL Hct 43.1 (35-47) % MCV 85.0 (78-100) fL MCH 27.8 (26-32) pg MCHC 32.7 (32-36) g/dL RDW 12.7 (11.5-14.0) % Plt Count 330 (150-450) x10^3/uL MPV 10.7 (7.5-11.0) fL Gran % 59.1 (36.0-66.0) % Immature Gran % (Auto) 0.3 (0.00-0.4) % Nucleat RBC Rel Count 0.0 (0.00-0.1) % Eos # (Auto) 0.14 (0-0.5) x10^3/uL Immature Gran # (Auto) 0.02 (0.00-0.03) x10^3u/L Absolute Lymphs (auto) 2.04 (1.0-4.6) x10^3/uL Absolute Monos (auto) 0.55 (0.0-1.3) x10^3/uL Absolute Nucleated RBC 0.00 (0.00-0.01) x10^3u/L Lymphocytes % 30.0 (24.0-44.0) % Monocytes % 8.1 (0.0-12.0) % Eosinophils % 2.1 (0.00-5.0) % Basophils % 0.4 (0.0-0.4) % Absolute Granulocytes 4.01 (1.4-6.9) x10^3/uL Basophils # 0.03 (0-0.4) x10^3/uL Sodium 138 (135-145) mmol/L Potassium 3.1 L (3.5-5.1) mmol/L Chloride 104 (98-107) mmol/L Carbon Dioxide 23 (22-30) mmol/L Anion Gap 14.3 (5-15) MEQ/L BUN 17 (7-17) mg/dL Creatinine 0.58 (0.52-1.04) mg/dL Estimated GFR 108.8 ML/MIN Glucose 156 H (74-106) mg/dL Lactic Acid (0.4-2.0) Calcium 9.3 (8.4-10.2) mg/dL Magnesium 2.1 (1.6-2.3) mg/dL Total Bilirubin 0.20 (0.2-1.3) mg/dL AST 32 (14-36) U/L ALT 53 H (0-35) U/L Alkaline Phosphatase 74 (38-126) U/L Troponin I < 0.012 (0.000-0.033) ng/mL Serum Total Protein 7.3 (6.3-8.2) g/dL Albumin 4.1 (3.5-5.0) g/dL Urine Color (Yellow) Urine Appearance (Clear) Urine pH (4.6-8.0) Ur Specific Sunshine (1.005-1.030) Urine Protein (Negative) Urine Glucose (UA) (Negative) mg/dL Urine Ketones (Negative) Urine Blood (Negative) Urine Nitrite (Negative) Urine Bilirubin (Negative) Urine Urobilinogen (0.2) mg/dL Ur Leukocyte Esterase (Negative) U Hyaline Cast (Auto) (0-2) /LPF Urine Microscopic RBC (0-5) /HPF Urine Microscopic WBC (0-5) /HPF Ur Epithelial Cells (None Seen) /HPF Urine Bacteria (None Seen) /HPF Urine Culture Reflexed (NO) Influenza Type A Ag (NEGATIVE) Influenza Type B Ag (NEGATIVE) RSV (PCR) (NEGATIVE) SARS-CoV-2 (PCR) (NEGATIVE) 03/07/24 Range/Units 16:50 WBC (4.0-10.5) x10^3/uL RBC (4.1-5.4) x10^6/uL Hgb (12.0-16.0) g/dL Hct (35-47) % MCV (78-100) fL MCH (26-32) pg MCHC (32-36) g/dL RDW (11.5-14.0) % Plt Count (150-450) x10^3/uL MPV (7.5-11.0) fL Gran % (36.0-66.0) % Immature Gran % (Auto) (0.00-0.4) % Nucleat RBC Rel Count (0.00-0.1) % Eos # (Auto) (0-0.5) x10^3/uL Immature Gran # (Auto) (0.00-0.03) x10^3u/L Absolute Lymphs (auto) (1.0-4.6) x10^3/uL Absolute Monos (auto) (0.0-1.3) x10^3/uL Absolute Nucleated RBC (0.00-0.01) x10^3u/L Lymphocytes % (24.0-44.0) % Monocytes % (0.0-12.0) % Eosinophils % (0.00-5.0) % Basophils % (0.0-0.4) % Absolute Granulocytes (1.4-6.9) x10^3/uL Basophils # (0-0.4) x10^3/uL Sodium (135-145) mmol/L Potassium (3.5-5.1) mmol/L Chloride (98-107) mmol/L Carbon Dioxide (22-30) mmol/L Anion Gap (5-15) MEQ/L BUN (7-17) mg/dL Creatinine (0.52-1.04) mg/dL Estimated GFR ML/MIN Glucose (74-106) mg/dL Lactic Acid 0.9 (0.4-2.0) Calcium (8.4-10.2) mg/dL Magnesium (1.6-2.3) mg/dL Total Bilirubin (0.2-1.3) mg/dL AST (14-36) U/L ALT (0-35) U/L Alkaline Phosphatase (38-126) U/L Troponin I (0.000-0.033) ng/mL Serum Total Protein (6.3-8.2) g/dL Albumin (3.5-5.0) g/dL Urine Color (Yellow) Urine Appearance (Clear) Urine pH (4.6-8.0) Ur Specific Sunshine (1.005-1.030) Urine Protein (Negative) Urine Glucose (UA) (Negative) mg/dL Urine Ketones (Negative) Urine Blood (Negative) Urine Nitrite (Negative) Urine Bilirubin (Negative) Urine Urobilinogen (0.2) mg/dL Ur Leukocyte Esterase (Negative) U Hyaline Cast (Auto) (0-2) /LPF Urine Microscopic RBC (0-5) /HPF Urine Microscopic WBC (0-5) /HPF Ur Epithelial Cells (None Seen) /HPF Urine Bacteria (None Seen) /HPF Urine Culture Reflexed (NO) Influenza Type A Ag (NEGATIVE) Influenza Type B Ag (NEGATIVE) RSV (PCR) (NEGATIVE) SARS-CoV-2 (PCR) (NEGATIVE) - Progress Progress: improved Air Movement: good Blood Culture(s) Obtained: No Antibiotics given: No Discussed with : Leo (Dr. Atkinson accepts admission at 8:39 PM) Counseled pt/family regarding: lab results, diagnosis, need for follow-up, rad results <CESIA DIAZ - Last Filed: 03/07/24 20:39> <TIN LANDIN - Last Filed: 03/08/24 14:30> - Progress Progress Note: 53-year-old female with a history of hypertension hypercholesterolemia and diabetes originally evaluated by Dr. Landin for headache and dizziness. Neurologic exam was nonfocal. CT head negative for acute pathology. Patient received IV fluids and meclizine no significant improvement. Orthostatics were normal. Patient evaluated by teleneurologist who advises hospitalization for MRI. Plan of care discussed with patient. She agrees to admission to [facility] for further evaluation and treatment. Complexity of problem is moderate acute complicated No critical care time Complexity of data reviewed and analyzed is extensive. Test ordered test reviewed results analyzed and correlated clinically with history and physical exam. Management discussed with neurologist and hospitalist Risk of complication and or risk morbidity/mortality of patient management is high. Patient requires hospitalization for further evaluation and treatment. Vital stable. Time spent to admit patient is approximately 30 minutes. Plan of care established for shared decision making. No social determinants of health present impede follow-up. Portions of this note were created with voice recognition technology. There may be grammatical, spelling, punctuation or sound alike errors 03/07/24 20:39 03/07/24 20:42 (CESIA DIAZ) 03/07/24 18:55 53 years old is evaluated in the ER for headache dizziness. Patient has nonfocal neuroexam. She has some element of positional vertigo and is given fluids and meclizine along with Reglan/Benadryl, on reevaluation her headache is better but not completely resolved. Patient has normal white count, fairly unremarkable chemistries except for potassium of 3.1. EKG is normal sinus rhythm with no ST elevations and no arrhythmias. CT head is pending, care is transferred to Dr. Diaz at end of my shift for reevaluation and final disposition. (TIN LANDIN) - Departure Departure Disposition: Observation Critical Care Time: No <CESIA DIAZ - Last Filed: 03/07/24 20:39> <TIN LANDIN - Last Filed: 03/08/24 14:30> - Departure Clinical Impression: Dizziness Condition: Stable
[2024-03-07 17:08] LABS: Absolute Neutrophil Ct (ANC) 4.01 x10^3/uL (1.4-6.9); BASOPHIL % 0.4 % (0.0-0.4); Basophil (Absolute #) 0.03 x10^3/uL (0-0.4); Eosinophil % 2.1 % (0.00-5.0); Eosinophil (Absolute #) 0.14 x10^3/uL (0-0.5); Hematocrit 43.1 % (35-47); Hemoglobin 14.1 g/dL (12.0-16.0); IMMATURE GRAN # 0.02 x10^3u/L (0.00-0.03); IMMATURE GRAN % 0.3 % (0.00-0.4); Lymphocyte (Absolute #) 2.04 x10^3/uL (1.0-4.6); Mean Corpuscular Hemoglobin 27.8 pg (26-32); Mean Corpuscular Hgb Concent. 32.7 g/dL (32-36); Mean Platelet Volume 10.7 fL (7.5-11.0); Monocyte (Absolute #) 0.55 x10^3/uL (0.0-1.3); Monocytes % 8.1 % (0.0-12.0); Neutrophil % 59.1 % (36.0-66.0); Platelet Count 330 x10^3/uL (150-450); Red Blood Count 5.07 x10^6/uL (4.1-5.4); Red Cell Distribution Width 12.7 % (11.5-14.0); White Blood Count 6.8 x10^3/uL (4.0-10.5)
[2024-03-07 17:22] LABS: ALBUMIN 4.1 g/dL (3.5-5.0); ANION GAP 14.3 MEQ/L (5-15); BILIRUBIN,TOTAL 0.2 mg/dL (0.2-1.3); Calcium 9.3 mg/dL (8.4-10.2); Creatinine 1 0.58 mg/dL (0.52-1.04); EST GLOMERULAR FILTRATION RATE 108.8 ML/MIN; MAGNESIUM 2.1 mg/dL (1.6-2.3); Potassium 3.1 mmol/L (3.5-5.1); Total Protein 7.3 g/dL (6.3-8.2)
[2024-03-07] MEDS ORDERED: BENADRYL 50 MG/ML ONE (17:33)
[2024-03-07] MEDS ORDERED: ANTIVERT 25 MG ONE (17:33)
[2024-03-07] MEDS ORDERED: Sodium Chloride 0.9% 1000 ML 1,000 ML ONE (17:34)
[2024-03-07] MEDS ORDERED: TYLENOL 325 MG ONE (17:34)
[2024-03-07] MEDS ORDERED: Reglan 10 MG/2 ML ONE (17:34)
[2024-03-07] MEDS: ANTIVERT 25 MG PO ONE (17:35)
[2024-03-07] MEDS: TYLENOL 325 MG PO ONE (17:36)
[2024-03-07] MEDS: Sodium Chloride 0.9% 1000 ML 1,000 ML IV STA (17:36)
[2024-03-07] MEDS: BENADRYL 50 MG/ML IV ONE (17:37)
[2024-03-07] MEDS: Reglan 10 MG/2 ML IV ONE (17:38)
[2024-03-07 18:11] LABS: INFLUENZA A NEGATIVE (NEGATIVE); INFLUENZA B NEGATIVE (NEGATIVE); RESPIRATORY SYNCTIAL VIRUS NEGATIVE (NEGATIVE); SARS-CoV-2 Xpert Express NEGATIVE (NEGATIVE)
[2024-03-07 20:10] LABS: Appearance Clear (Clear); Bacteria None Seen /HPF (None Seen); Bilirubin Negative (Negative); Blood Negative (Negative); Epithelial Cells None Seen /HPF (None Seen); Glucose, Urine >=1000 mg/dL (Negative); Hyaline Casts NONE SEEN /LPF (0-2); Ketones Trace (Negative); Leukocyte Esterase Negative (Negative); Nitrite Negative (Negative); Ph 5.5 (4.6-8.0); Protein,Urine Dip Negative (Negative); RBC 0-2 /HPF (0-5); Specific Gravity >=1.030 (1.005-1.030); Urobilinogen 0.2 mg/dL (0.2); WBC 0-2 /HPF (0-5)
[2024-03-07 20:32] LABS: ADD URINE CULTURE? NO (NO)
[2024-03-07] MEDS ORDERED: HUMALOG SQ PRN (22:08)
--- NOTE | 2024-03-07 23:21 | PCM.HP ---
History of Present Illness - Chief Complaint Chief Complaint: Weakness and dizziness Date: 03/07/24 History of Present Illness: 53-year-old woman with a history of diabetes, hypertension, and chronic headaches, who presents with 1 day of severe fatigue, diffuse weakness, and dizziness. Patient noted that this morning, after taking her daughter to physical therapy, she had severe fatigue requiring her to lay down for 3 hours, associated with severe diffuse weakness. When she woke up, she was confused, had some vertigo with her vision "floating" past her. She also felt unsteady on her feet. She denies any nausea or diplopia at that time, and noted that her slowed thinking improved over time. However, after arriving at the hospital, she had a transient episode of facial numbness over the right side of her face. Denies any focal weakness, facial asymmetry, headache. She has been having some sinus congestion and cough for the last 2 to 3 weeks, although this has been improving for the past 2 to 3 days. She has no fevers. She has been compliant with her medications, and her blood pressure has recently been controlled, although she measured it at 97/70 when she was at home. Upon arrival to ER, it improved without intervention to the 110s over 70s. In the ED, she was given 1 L normal saline, meclizine, Reglan, and Benadryl. Neurology was consulted by ED due to concern for possible posterior CVA. Neurology noted that a peripheral cause was much more likely, but recommended patient be observed overnight and get an MRI. - Review of Systems Constitutional: Fatigue, Lethargy, Weakness, No Fever, No Chills Eyes: Eye Redness, Itchy (After exposure to some dust yesterday), No Eye Pain, No Vision Changes, No Double Vision Ears, Nose, & Throat: Sinus Drainage, Throat Pain (With), No Hearing Changes, No Tinnitus Respiratory: No Cough, No Short Of Breath Cardiac: No Chest Pain, No Palpitations, No Syncope Abdominal/Gastrointestinal: No Abdominal Pain, No Nausea, No Diarrhea Genitourinary Symptoms: No Symptoms Musculoskeletal: No Symptoms Skin: No Symptoms Neurological: Dizziness, Gait Changes, Lethargy, Parasthesia, No Focal Weakness, No Headache, No Paralysis, No Seizure, No Speech Changes Psychological: No Symptoms All Other Systems: Reviewed and Negative Medications & Allergies Home Medications: Home Medication List Montelukast Sodium 10 mg [Singulair 10 MG] 10 mg PO DAILY 02/06/22 [History Confirmed 03/07/24] hydroCHLOROthiazide [Hydrochlorothiazide] 12.5 mg PO DAILY 02/06/22 [History Confirmed 03/07/24] Amlodipine Besylate/Benazepril [Amlodipine-Benazepril 5-20 mg] 1 cap PO DAILY 03/07/24 [History Confirmed 03/07/24] Duloxetine HCl 20 mg PO DAILY 03/07/24 [History Confirmed 03/07/24] Empagliflozin [Jardiance] 10 mg PO DAILY 03/07/24 [History Confirmed 03/07/24] Insulin Degludec [Tresiba Flextouch U-200] 30 units SQ HS 03/07/24 [History Confirmed 03/07/24] Metoprolol Succinate 50 mg [Toprol Xl 50 MG] 50 mg PO DAILY 03/07/24 [History Confirmed 03/07/24] Pregabalin 150 mg PO BID 03/07/24 [History Confirmed 03/07/24] Semaglutide [Ozempic] 1 mg SQ WEEKLY 03/07/24 [History Confirmed 03/07/24] Allergies/Adverse Reactions: Allergies Allergy/AdvReac Type Severity Reaction Status Date / Time clonazepam [From Klonopin] Allergy Verified 07/30/22 11:35 ciprofloxacin AdvReac Severe Joint Aches Verified 07/30/22 11:35 levofloxacin [From Levaquin] AdvReac Severe Swelling Verified 07/30/22 11:35 of Joints - Past Medical History Past Medical History: Yes Neurological History: Migraines ENT History: No Pertinent History Cardiac History: High Cholesterol, Hypertension Respiratory History: No Pertinent History Endocrine Medical History: Diabetes Type II Musculoskelatal History: Fibromyalgia GI Medical History: GERD, Gallbladder Disease, Polyps History: No Pertinent History Pyscho-Social History: Anxiety Reproductive Disorders: Endometriosis Comment: vaginal prolapse, retrocele, cystocele - Female History Hx Last Menstrual Period: hysterectomy Are you now?: No - Past Surgical History Past Surgical History: Yes Neuro Surgical History: No Pertinent History Cardiac History: No Pertinent History Respiratory Surgery: No Pertinent History GI Surgical History: Cholecystectomy Genitourinary Surgical Hx: Other Musculskeletal Surgical Hx: No Pertinent History Female Surgical History: Hysterectomy Other Surgical History: cystocele, retrocele Significant Family History: no pertinent family hx - Social History Smoking Status: Never smoker Exposure to second hand smoke: No Alcohol: None Drug Use: none - Social Determinants of Health Will the patient participate in the screening: Yes Do you worry about a steady place to live?: Yes Do you have any problems with any of the following?: No known problems In the past 12 months,have you had to go without utilities?: No Have you or anyone in your house had to go without enough: No Transportation Issues: No Has anyone in your support network made you feel unsafe?: No - Physical Exam Vital Signs: Vital Signs - 24 hr Temp Pulse Resp BP BP Pulse Ox 03/07/24 21:00 72 18 96/66 95 03/07/24 20:30 70 16 99/64 94 L 03/07/24 20:00 74 21 118/94 94 L 03/07/24 19:30 76 15 117/85 97 03/07/24 19:29 76 23 97 03/07/24 19:20 80 15 93 L 03/07/24 19:10 79 16 94 L 03/07/24 19:02 79 14 94 L 03/07/24 18:43 80 19 114/78 93 L 03/07/24 18:41 90 12 112/72 03/07/24 18:40 86 13 108/78 99 03/07/24 18:37 97 03/07/24 17:30 95 H 17 105/75 94 L 03/07/24 17:01 76 17 110/76 96 03/07/24 16:25 98.7 F 85 20 126/87 97 GEN: Lying in bed in no acute distress NEURO: Face symmetric, no focal deficits, sensory intact bilaterally, cranial nerves intact. CV: Regular rate & rhythm, no murmurs, no edema PULM: Clear to auscultation bilaterally, no work of breathing, on room air ABD: Soft, non-distended, normoactive bowel sounds PSYCH: Alert, oriented x3 Results - Labs Lab/Micro Results: Lab Results-Last 24 Hours 03/07/24 03/07/24 03/07/24 Range/Units 16:50 17:00 17:00 WBC 6.8 (4.0-10.5) x10^3/uL RBC 5.07 (4.1-5.4) x10^6/uL Hgb 14.1 (12.0-16.0) g/dL Hct 43.1 (35-47) % MCV 85.0 (78-100) fL MCH 27.8 (26-32) pg MCHC 32.7 (32-36) g/dL RDW 12.7 (11.5-14.0) % Plt Count 330 (150-450) x10^3/uL MPV 10.7 (7.5-11.0) fL Gran % 59.1 (36.0-66.0) % Immature Gran % (Auto) 0.3 (0.00-0.4) % Nucleat RBC Rel Count 0.0 (0.00-0.1) % Eos # (Auto) 0.14 (0-0.5) x10^3/uL Immature Gran # (Auto) 0.02 (0.00-0.03) x10^3u/L Absolute Lymphs (auto) 2.04 (1.0-4.6) x10^3/uL Absolute Monos (auto) 0.55 (0.0-1.3) x10^3/uL Absolute Nucleated RBC 0.00 (0.00-0.01) x10^3u/L Lymphocytes % 30.0 (24.0-44.0) % Monocytes % 8.1 (0.0-12.0) % Eosinophils % 2.1 (0.00-5.0) % Basophils % 0.4 (0.0-0.4) % Absolute Granulocytes 4.01 (1.4-6.9) x10^3/uL Basophils # 0.03 (0-0.4) x10^3/uL Sodium 138 (135-145) mmol/L Potassium 3.1 L (3.5-5.1) mmol/L Chloride 104 (98-107) mmol/L Carbon Dioxide 23 (22-30) mmol/L Anion Gap 14.3 (5-15) MEQ/L BUN 17 (7-17) mg/dL Creatinine 0.58 (0.52-1.04) mg/dL Estimated GFR 108.8 ML/MIN Glucose 156 H (74-106) mg/dL Lactic Acid 0.9 (0.4-2.0) Calcium 9.3 (8.4-10.2) mg/dL Magnesium 2.1 (1.6-2.3) mg/dL Total Bilirubin 0.20 (0.2-1.3) mg/dL AST 32 (14-36) U/L ALT 53 H (0-35) U/L Alkaline Phosphatase 74 (38-126) U/L Troponin I (0.000-0.033) ng/mL Serum Total Protein 7.3 (6.3-8.2) g/dL Albumin 4.1 (3.5-5.0) g/dL Urine Color (Yellow) Urine Appearance (Clear) Urine pH (4.6-8.0) Ur Specific [place] (1.005-1.030) Urine Protein (Negative) Urine Glucose (UA) (Negative) mg/dL Urine Ketones (Negative) Urine Blood (Negative) Urine Nitrite (Negative) Urine Bilirubin (Negative) Urine Urobilinogen (0.2) mg/dL Ur Leukocyte Esterase (Negative) U Hyaline Cast (Auto) (0-2) /LPF Urine Microscopic RBC (0-5) /HPF Urine Microscopic WBC (0-5) /HPF Ur Epithelial Cells (None Seen) /HPF Urine Bacteria (None Seen) /HPF Urine Culture Reflexed (NO) Influenza Type A Ag (NEGATIVE) Influenza Type B Ag (NEGATIVE) RSV (PCR) (NEGATIVE) SARS-CoV-2 (PCR) (NEGATIVE) 03/07/24 03/07/24 03/07/24 Range/Units 17:00 17:30 19:28 WBC (4.0-10.5) x10^3/uL RBC (4.1-5.4) x10^6/uL Hgb (12.0-16.0) g/dL Hct (35-47) % MCV (78-100) fL MCH (26-32) pg MCHC (32-36) g/dL RDW (11.5-14.0) % Plt Count (150-450) x10^3/uL MPV (7.5-11.0) fL Gran % (36.0-66.0) % Immature Gran % (Auto) (0.00-0.4) % Nucleat RBC Rel Count (0.00-0.1) % Eos # (Auto) (0-0.5) x10^3/uL Immature Gran # (Auto) (0.00-0.03) x10^3u/L Absolute Lymphs (auto) (1.0-4.6) x10^3/uL Absolute Monos (auto) (0.0-1.3) x10^3/uL Absolute Nucleated RBC (0.00-0.01) x10^3u/L Lymphocytes % (24.0-44.0) % Monocytes % (0.0-12.0) % Eosinophils % (0.00-5.0) % Basophils % (0.0-0.4) % Absolute Granulocytes (1.4-6.9) x10^3/uL Basophils # (0-0.4) x10^3/uL Sodium (135-145) mmol/L Potassium (3.5-5.1) mmol/L Chloride (98-107) mmol/L Carbon Dioxide (22-30) mmol/L Anion Gap (5-15) MEQ/L BUN (7-17) mg/dL Creatinine (0.52-1.04) mg/dL Estimated GFR ML/MIN Glucose (74-106) mg/dL Lactic Acid (0.4-2.0) Calcium (8.4-10.2) mg/dL Magnesium (1.6-2.3) mg/dL Total Bilirubin (0.2-1.3) mg/dL AST (14-36) U/L ALT (0-35) U/L Alkaline Phosphatase (38-126) U/L Troponin I < 0.012 (0.000-0.033) ng/mL Serum Total Protein (6.3-8.2) g/dL Albumin (3.5-5.0) g/dL Urine Color Yellow (Yellow) Urine Appearance Clear (Clear) Urine pH 5.5 (4.6-8.0) Ur Specific [place] >=1.030 A (1.005-1.030) Urine Protein Negative (Negative) Urine Glucose (UA) >=1000 A (Negative) mg/dL Urine Ketones Trace A (Negative) Urine Blood Negative (Negative) Urine Nitrite Negative (Negative) Urine Bilirubin Negative (Negative) Urine Urobilinogen 0.2 (0.2) mg/dL Ur Leukocyte Esterase Negative (Negative) U Hyaline Cast (Auto) NONE SEEN (0-2) /LPF Urine Microscopic RBC 0-2 (0-5) /HPF Urine Microscopic WBC 0-2 (0-5) /HPF Ur Epithelial Cells None Seen (None Seen) /HPF Urine Bacteria None Seen (None Seen) /HPF Urine Culture Reflexed NO (NO) Influenza Type A Ag NEGATIVE (NEGATIVE) Influenza Type B Ag NEGATIVE (NEGATIVE) RSV (PCR) NEGATIVE (NEGATIVE) SARS-CoV-2 (PCR) NEGATIVE (NEGATIVE) 03/07/24 Range/Units 21:00 WBC (4.0-10.5) x10^3/uL RBC (4.1-5.4) x10^6/uL Hgb (12.0-16.0) g/dL Hct (35-47) % MCV (78-100) fL MCH (26-32) pg MCHC (32-36) g/dL RDW (11.5-14.0) % Plt Count (150-450) x10^3/uL MPV (7.5-11.0) fL Gran % (36.0-66.0) % Immature Gran % (Auto) (0.00-0.4) % Nucleat RBC Rel Count (0.00-0.1) % Eos # (Auto) (0-0.5) x10^3/uL Immature Gran # (Auto) (0.00-0.03) x10^3u/L Absolute Lymphs (auto) (1.0-4.6) x10^3/uL Absolute Monos (auto) (0.0-1.3) x10^3/uL Absolute Nucleated RBC (0.00-0.01) x10^3u/L Lymphocytes % (24.0-44.0) % Monocytes % (0.0-12.0) % Eosinophils % (0.00-5.0) % Basophils % (0.0-0.4) % Absolute Granulocytes (1.4-6.9) x10^3/uL Basophils # (0-0.4) x10^3/uL Sodium (135-145) mmol/L Potassium (3.5-5.1) mmol/L Chloride (98-107) mmol/L Carbon Dioxide (22-30) mmol/L Anion Gap (5-15) MEQ/L BUN (7-17) mg/dL Creatinine (0.52-1.04) mg/dL Estimated GFR ML/MIN Glucose (74-106) mg/dL Lactic Acid (0.4-2.0) Calcium (8.4-10.2) mg/dL Magnesium (1.6-2.3) mg/dL Total Bilirubin (0.2-1.3) mg/dL AST (14-36) U/L ALT (0-35) U/L Alkaline Phosphatase (38-126) U/L Troponin I < 0.012 (0.000-0.033) ng/mL Serum Total Protein (6.3-8.2) g/dL Albumin (3.5-5.0) g/dL Urine Color (Yellow) Urine Appearance (Clear) Urine pH (4.6-8.0) Ur Specific [place] (1.005-1.030) Urine Protein (Negative) Urine Glucose (UA) (Negative) mg/dL Urine Ketones (Negative) Urine Blood (Negative) Urine Nitrite (Negative) Urine Bilirubin (Negative) Urine Urobilinogen (0.2) mg/dL Ur Leukocyte Esterase (Negative) U Hyaline Cast (Auto) (0-2) /LPF Urine Microscopic RBC (0-5) /HPF Urine Microscopic WBC (0-5) /HPF Ur Epithelial Cells (None Seen) /HPF Urine Bacteria (None Seen) /HPF Urine Culture Reflexed (NO) Influenza Type A Ag (NEGATIVE) Influenza Type B Ag (NEGATIVE) RSV (PCR) (NEGATIVE) SARS-CoV-2 (PCR) (NEGATIVE) - Radiology Impressions Radiology Exams & Impressions: Radiology Procedures Category Date Time Status CHEST 1 VIEW (PORTABLE) Stat Exams 03/07/24 16:50 Taken HEAD WITHOUT CONTRAST [CT] Stat Exams 03/07/24 16:51 Taken MRI BRAIN W/O CONTRAST [MRI] Routine Exams 03/07/24 22:10 Ordered Assessment/Plan (1) Vestibular neuritis Current Visit: Yes Status: Acute Assessment & Plan: 53-year-old with a history of diabetes, hypertension, chronic headaches, here with an episode of dizziness and unsteady gait after recent upper respiratory infection. ## Dizziness versus vertigo most likely this is vestibular neuritis after her recent URI, in agreement with evaluation by neurology. Her facial numbness and her severe diffuse lethargy do not quite fit with this, but also do not fit with stroke. Patient does not have any stroke risk factors other than her high blood pressure. Supportive care PRN meclizine Observe overnight with neurochecks Get MRI Per neurology recommendations, not getting any further stroke workup unless MRI is positive If MRI negative, can discharge home with ENT follow-up in a few weeks if not resolving. PRN Zofran ## Hypertension patient was mildly hypotensive at home, but normotensive upon arrival to the ED. Currently her blood pressure is controlled. Resume home amlodipine, benazepril, HCTZ, and metoprolol ## Type 2 diabetes on insulin at home. Give Lantus 20 units QHS (8 decreased from her 30 units QHS normal dosing because of decreased p.o. intake in the hospital) Start moderate dose sliding scale insulin ## Hypokalemia potassium 3.1 on arrival. Likely secondary to her use of HCTZ. Given K-Dur 40 mEq p.o. x 1 Check BMP in the morning CODE STATUS: Full code Diet: Diabetic Prophylaxis: Lovenox Code(s): H81.20 - VESTIBULAR NEURONITIS, UNSPECIFIED EAR Telemedicine Encounter - Telemedicine Encounter Telemedicine Encounter: The entirety of this encounter was performed via Telemedicine"
[2024-03-08] MEDS ORDERED: Lantus Insulin SQ SCH ×2 (00:10→22:00)
[2024-03-08] MEDS: LYRICA 150MG PO SCH (00:26)
[2024-03-08] MEDS: Klor Con PO ONE ×3 (00:27→16:13)
[2024-03-08] MEDS: Lantus Insulin SQ SCH (00:28)
[2024-03-08] MEDS: TYLENOL 325 MG PO PRN (00:37)
[2024-03-08 05:20] LABS: Hematocrit 40.9 % (35-47); Hemoglobin 13.3 g/dL (12.0-16.0); Mean Cell Volume 84.2 fL (78-100); Mean Corpuscular Hemoglobin 27.4 pg (26-32); Mean Corpuscular Hgb Concent. 32.5 g/dL (32-36); Mean Platelet Volume 10.7 fL (7.5-11.0); Platelet Count 316 x10^3/uL (150-450); Red Blood Count 4.86 x10^6/uL (4.1-5.4); Red Cell Distribution Width 12.9 % (11.5-14.0); White Blood Count 5.8 x10^3/uL (4.0-10.5)
[2024-03-08] MEDS ORDERED: MEDICATION INTERVENTION MC SCH (07:00)
[2024-03-08 08:05] LABS: ANION GAP 11.1 MEQ/L (5-15); Calcium 8.7 mg/dL (8.4-10.2); Creatinine 1 0.56 mg/dL (0.52-1.04); EST GLOMERULAR FILTRATION RATE 109.7 ML/MIN; Potassium 3.4 mmol/L (3.5-5.1)
--- NOTE | 2024-03-08 08:39 | XRAY ---
Indication: Headache and dizziness. Multiple contiguous axial images obtained through the head without contrast. Comparison: March 29, 2022 Again age-appropriate global atrophy and tiny remote lacunar infarct left basal ganglia. No acute intracranial hemorrhage, abnormal extra-axial fluid collection, or mass effect. Fourth ventricle is midline without hydrocephalus. Jones-white matter differentiation preserved. Bony calvarium intact. Visualized paranasal sinuses and mastoid air cells are clear. Impression: Again atrophy and remote lacunar infarct left basal ganglia. No new/acute intracranial abnormalities.
--- NOTE | 2024-03-08 08:41 | XRAY ---
Indication: Headache, dizziness, and hypotension. Comparison: May 22, 2014 Portable chest again demonstrates normal heart and lungs. Bony thorax intact with osteopenia and degenerative changes. No new/acute findings.
[2024-03-08] MEDS: hydroDIURIL 25 MG PO SCH (09:07)
[2024-03-08] MEDS: ENOXAPARIN SODIUM SQ SCH (09:07)
[2024-03-08] MEDS: Toprol Xl 50 MG PO SCH (09:07)
[2024-03-08] MEDS: Lotensin PO SCH (09:08)
[2024-03-08] MEDS: NORVASC 5 MG PO SCH (09:09)
[2024-03-08] MEDS: Singulair 10 MG PO SCH (09:09)
[2024-03-08] MEDS ORDERED: NON-FORMULARY ITEM (Hydrochlorothiazide [Hydrochlorothiazide] 12.5 MG Tablet) PO SCH (10:00)
[2024-03-08] MEDS ORDERED: DULOXETINE HCL 20 MG PO SCH (10:00)
[2024-03-08] MEDS ORDERED: LYRICA 150MG PO SCH (10:00)
--- NOTE | 2024-03-08 11:47 | PCM.NOTE ---
Date and Time: 03/08/24 1141 Subjective Assessment: Ms. Engel is a 53-year-old female with a pmhx of diabetes, hypertension, chronic headaches,admitted 03/07/24 after experiencing an episode of dizziness and unsteady gait after recent upper respiratory infection. Neurology consulted with recommendations for MRI which is scheduled for today. 03/08/24: Met with patient bedside. present. No overnight events noted. Patient states weakness has continued. Dizziness has improved. No longer having right facial numbness. Denies visual disturbances, headaches, aphasia. No nystagmus. Plan for carotid doppler/MRI today. Hypokalemia improving. - Review of Systems Constitutional: Weakness Eyes: No Symptoms Ears, Nose, & Throat: No Symptoms Respiratory: No Symptoms Cardiac: No Symptoms Abdominal/Gastrointestinal: No Symptoms Genitourinary Symptoms: No Symptoms Musculoskeletal: No Symptoms Skin: No Symptoms Neurological: Dizziness Psychological: No Symptoms Endocrine: No Symptoms Hematologic/Lymphatic: No Symptoms Immunological/Allergic: No Symptoms Objective Exam General Appearance: no apparent distress Neurologic Exam: alert, oriented x 3, cooperative, sustainability consultant II-XII nml as tested, normal mood/affect, nml cerebellar function, nml station & gait, sensation nml Skin Exam: normal color Eye Exam: PERRL, No photophobia Ears, Nose, Throat Exam: moist mucous membranes Neck Exam: full range of motion Respiratory Exam: normal breath sounds, lungs clear Cardiovascular Exam: regular rate/rhythm, normal heart sounds Gastrointestinal/Abdomen Exam: soft, normal bowel sounds Extremity Exam: normal inspection Back Exam: normal inspection Pelvic Exam: deferred Rectal Exam: deferred Objective Data Vital Signs: Vital Signs - 24 hr Temp Pulse Resp BP BP Pulse Ox 03/08/24 11:20 97.7 F 75 17 100/59 93 L 03/08/24 07:21 97.7 F 67 16 105/68 97 03/08/24 04:00 98.1 F 77 17 104/66 99 03/08/24 00:00 97.9 F 77 18 116/66 96 03/07/24 22:36 97.9 F 77 18 116/66 96 03/07/24 21:00 72 18 96/66 95 03/07/24 20:30 70 16 99/64 94 L 03/07/24 20:00 74 21 118/94 94 L 03/07/24 19:30 76 15 117/85 97 03/07/24 19:29 76 23 97 03/07/24 19:20 80 15 93 L 03/07/24 19:10 79 16 94 L 03/07/24 19:02 79 14 94 L 03/07/24 18:43 80 19 114/78 93 L 03/07/24 18:41 90 12 112/72 03/07/24 18:40 86 13 108/78 99 03/07/24 18:37 97 03/07/24 17:30 95 H 17 105/75 94 L 03/07/24 17:01 76 17 110/76 96 03/07/24 16:25 98.7 F 85 20 126/87 97 Pain Assessment - Last Documented Pain Intensity 3 Pain Scale Used 0-10 Pain Scale Intake and Output: Intake & Output 03/05/24 03/06/24 03/07/24 03/08/24 11:59 11:59 11:59 11:59 Intake Total 450 Balance 450 Weight 89.8 kg Lab Results: Lab Results-Last 24 Hours 03/07/24 03/07/24 03/07/24 Range/Units 16:50 17:00 17:00 WBC 6.8 (4.0-10.5) x10^3/uL RBC 5.07 (4.1-5.4) x10^6/uL Hgb 14.1 (12.0-16.0) g/dL Hct 43.1 (35-47) % MCV 85.0 (78-100) fL MCH 27.8 (26-32) pg MCHC 32.7 (32-36) g/dL RDW 12.7 (11.5-14.0) % Plt Count 330 (150-450) x10^3/uL MPV 10.7 (7.5-11.0) fL Gran % 59.1 (36.0-66.0) % Immature Gran % (Auto) 0.3 (0.00-0.4) % Nucleat RBC Rel Count 0.0 (0.00-0.1) % Eos # (Auto) 0.14 (0-0.5) x10^3/uL Immature Gran # (Auto) 0.02 (0.00-0.03) x10^3u/L Absolute Lymphs (auto) 2.04 (1.0-4.6) x10^3/uL Absolute Monos (auto) 0.55 (0.0-1.3) x10^3/uL Absolute Nucleated RBC 0.00 (0.00-0.01) x10^3u/L Lymphocytes % 30.0 (24.0-44.0) % Monocytes % 8.1 (0.0-12.0) % Eosinophils % 2.1 (0.00-5.0) % Basophils % 0.4 (0.0-0.4) % Absolute Granulocytes 4.01 (1.4-6.9) x10^3/uL Basophils # 0.03 (0-0.4) x10^3/uL Sodium 138 (135-145) mmol/L Potassium 3.1 L (3.5-5.1) mmol/L Chloride 104 (98-107) mmol/L Carbon Dioxide 23 (22-30) mmol/L Anion Gap 14.3 (5-15) MEQ/L BUN 17 (7-17) mg/dL Creatinine 0.58 (0.52-1.04) mg/dL Estimated GFR 108.8 ML/MIN Glucose 156 H (74-106) mg/dL Hemoglobin A1c (4.5-6.0) % Lactic Acid 0.9 (0.4-2.0) Calcium 9.3 (8.4-10.2) mg/dL Magnesium 2.1 (1.6-2.3) mg/dL Total Bilirubin 0.20 (0.2-1.3) mg/dL AST 32 (14-36) U/L ALT 53 H (0-35) U/L Alkaline Phosphatase 74 (38-126) U/L Troponin I (0.000-0.033) ng/mL Serum Total Protein 7.3 (6.3-8.2) g/dL Albumin 4.1 (3.5-5.0) g/dL Urine Color (Yellow) Urine Appearance (Clear) Urine pH (4.6-8.0) Ur Specific Tyro (1.005-1.030) Urine Protein (Negative) Urine Glucose (UA) (Negative) mg/dL Urine Ketones (Negative) Urine Blood (Negative) Urine Nitrite (Negative) Urine Bilirubin (Negative) Urine Urobilinogen (0.2) mg/dL Ur Leukocyte Esterase (Negative) U Hyaline Cast (Auto) (0-2) /LPF Urine Microscopic RBC (0-5) /HPF Urine Microscopic WBC (0-5) /HPF Ur Epithelial Cells (None Seen) /HPF Urine Bacteria (None Seen) /HPF Urine Culture Reflexed (NO) Influenza Type A Ag (NEGATIVE) Influenza Type B Ag (NEGATIVE) RSV (PCR) (NEGATIVE) SARS-CoV-2 (PCR) (NEGATIVE) 03/07/24 03/07/24 03/07/24 Range/Units 17:00 17:30 19:28 WBC (4.0-10.5) x10^3/uL RBC (4.1-5.4) x10^6/uL Hgb (12.0-16.0) g/dL Hct (35-47) % MCV (78-100) fL MCH (26-32) pg MCHC (32-36) g/dL RDW (11.5-14.0) % Plt Count (150-450) x10^3/uL MPV (7.5-11.0) fL Gran % (36.0-66.0) % Immature Gran % (Auto) (0.00-0.4) % Nucleat RBC Rel Count (0.00-0.1) % Eos # (Auto) (0-0.5) x10^3/uL Immature Gran # (Auto) (0.00-0.03) x10^3u/L Absolute Lymphs (auto) (1.0-4.6) x10^3/uL Absolute Monos (auto) (0.0-1.3) x10^3/uL Absolute Nucleated RBC (0.00-0.01) x10^3u/L Lymphocytes % (24.0-44.0) % Monocytes % (0.0-12.0) % Eosinophils % (0.00-5.0) % Basophils % (0.0-0.4) % Absolute Granulocytes (1.4-6.9) x10^3/uL Basophils # (0-0.4) x10^3/uL Sodium (135-145) mmol/L Potassium (3.5-5.1) mmol/L Chloride (98-107) mmol/L Carbon Dioxide (22-30) mmol/L Anion Gap (5-15) MEQ/L BUN (7-17) mg/dL Creatinine (0.52-1.04) mg/dL Estimated GFR ML/MIN Glucose (74-106) mg/dL Hemoglobin A1c (4.5-6.0) % Lactic Acid (0.4-2.0) Calcium (8.4-10.2) mg/dL Magnesium (1.6-2.3) mg/dL Total Bilirubin (0.2-1.3) mg/dL AST (14-36) U/L ALT (0-35) U/L Alkaline Phosphatase (38-126) U/L Troponin I < 0.012 (0.000-0.033) ng/mL Serum Total Protein (6.3-8.2) g/dL Albumin (3.5-5.0) g/dL Urine Color Yellow (Yellow) Urine Appearance Clear (Clear) Urine pH 5.5 (4.6-8.0) Ur Specific Tyro >=1.030 A (1.005-1.030) Urine Protein Negative (Negative) Urine Glucose (UA) >=1000 A (Negative) mg/dL Urine Ketones Trace A (Negative) Urine Blood Negative (Negative) Urine Nitrite Negative (Negative) Urine Bilirubin Negative (Negative) Urine Urobilinogen 0.2 (0.2) mg/dL Ur Leukocyte Esterase Negative (Negative) U Hyaline Cast (Auto) NONE SEEN (0-2) /LPF Urine Microscopic RBC 0-2 (0-5) /HPF Urine Microscopic WBC 0-2 (0-5) /HPF Ur Epithelial Cells None Seen (None Seen) /HPF Urine Bacteria None Seen (None Seen) /HPF Urine Culture Reflexed NO (NO) Influenza Type A Ag NEGATIVE (NEGATIVE) Influenza Type B Ag NEGATIVE (NEGATIVE) RSV (PCR) NEGATIVE (NEGATIVE) SARS-CoV-2 (PCR) NEGATIVE (NEGATIVE) 03/07/24 03/08/24 03/08/24 Range/Units 21:00 04:50 05:00 WBC 5.8 (4.0-10.5) x10^3/uL RBC 4.86 (4.1-5.4) x10^6/uL Hgb 13.3 (12.0-16.0) g/dL Hct 40.9 (35-47) % MCV 84.2 (78-100) fL MCH 27.4 (26-32) pg MCHC 32.5 (32-36) g/dL RDW 12.9 (11.5-14.0) % Plt Count 316 (150-450) x10^3/uL MPV 10.7 (7.5-11.0) fL Gran % (36.0-66.0) % Immature Gran % (Auto) (0.00-0.4) % Nucleat RBC Rel Count (0.00-0.1) % Eos # (Auto) (0-0.5) x10^3/uL Immature Gran # (Auto) (0.00-0.03) x10^3u/L Absolute Lymphs (auto) (1.0-4.6) x10^3/uL Absolute Monos (auto) (0.0-1.3) x10^3/uL Absolute Nucleated RBC (0.00-0.01) x10^3u/L Lymphocytes % (24.0-44.0) % Monocytes % (0.0-12.0) % Eosinophils % (0.00-5.0) % Basophils % (0.0-0.4) % Absolute Granulocytes (1.4-6.9) x10^3/uL Basophils # (0-0.4) x10^3/uL Sodium (135-145) mmol/L Potassium (3.5-5.1) mmol/L Chloride (98-107) mmol/L Carbon Dioxide (22-30) mmol/L Anion Gap (5-15) MEQ/L BUN (7-17) mg/dL Creatinine (0.52-1.04) mg/dL Estimated GFR ML/MIN Glucose (74-106) mg/dL Hemoglobin A1c 8.67 H (4.5-6.0) % Lactic Acid (0.4-2.0) Calcium (8.4-10.2) mg/dL Magnesium (1.6-2.3) mg/dL Total Bilirubin (0.2-1.3) mg/dL AST (14-36) U/L ALT (0-35) U/L Alkaline Phosphatase (38-126) U/L Troponin I < 0.012 (0.000-0.033) ng/mL Serum Total Protein (6.3-8.2) g/dL Albumin (3.5-5.0) g/dL Urine Color (Yellow) Urine Appearance (Clear) Urine pH (4.6-8.0) Ur Specific Tyro (1.005-1.030) Urine Protein (Negative) Urine Glucose (UA) (Negative) mg/dL Urine Ketones (Negative) Urine Blood (Negative) Urine Nitrite (Negative) Urine Bilirubin (Negative) Urine Urobilinogen (0.2) mg/dL Ur Leukocyte Esterase (Negative) U Hyaline Cast (Auto) (0-2) /LPF Urine Microscopic RBC (0-5) /HPF Urine Microscopic WBC (0-5) /HPF Ur Epithelial Cells (None Seen) /HPF Urine Bacteria (None Seen) /HPF Urine Culture Reflexed (NO) Influenza Type A Ag (NEGATIVE) Influenza Type B Ag (NEGATIVE) RSV (PCR) (NEGATIVE) SARS-CoV-2 (PCR) (NEGATIVE) 03/08/24 Range/Units 05:00 WBC (4.0-10.5) x10^3/uL RBC (4.1-5.4) x10^6/uL Hgb (12.0-16.0) g/dL Hct (35-47) % MCV (78-100) fL MCH (26-32) pg MCHC (32-36) g/dL RDW (11.5-14.0) % Plt Count (150-450) x10^3/uL MPV (7.5-11.0) fL Gran % (36.0-66.0) % Immature Gran % (Auto) (0.00-0.4) % Nucleat RBC Rel Count (0.00-0.1) % Eos # (Auto) (0-0.5) x10^3/uL Immature Gran # (Auto) (0.00-0.03) x10^3u/L Absolute Lymphs (auto) (1.0-4.6) x10^3/uL Absolute Monos (auto) (0.0-1.3) x10^3/uL Absolute Nucleated RBC (0.00-0.01) x10^3u/L Lymphocytes % (24.0-44.0) % Monocytes % (0.0-12.0) % Eosinophils % (0.00-5.0) % Basophils % (0.0-0.4) % Absolute Granulocytes (1.4-6.9) x10^3/uL Basophils # (0-0.4) x10^3/uL Sodium 139 (135-145) mmol/L Potassium 3.4 L (3.5-5.1) mmol/L Chloride 108 H (98-107) mmol/L Carbon Dioxide 23 (22-30) mmol/L Anion Gap 11.1 (5-15) MEQ/L BUN 17 (7-17) mg/dL Creatinine 0.56 (0.52-1.04) mg/dL Estimated GFR 109.7 ML/MIN Glucose 142 H (74-106) mg/dL Hemoglobin A1c (4.5-6.0) % Lactic Acid (0.4-2.0) Calcium 8.7 (8.4-10.2) mg/dL Magnesium (1.6-2.3) mg/dL Total Bilirubin (0.2-1.3) mg/dL AST (14-36) U/L ALT (0-35) U/L Alkaline Phosphatase (38-126) U/L Troponin I (0.000-0.033) ng/mL Serum Total Protein (6.3-8.2) g/dL Albumin (3.5-5.0) g/dL Urine Color (Yellow) Urine Appearance (Clear) Urine pH (4.6-8.0) Ur Specific Tyro (1.005-1.030) Urine Protein (Negative) Urine Glucose (UA) (Negative) mg/dL Urine Ketones (Negative) Urine Blood (Negative) Urine Nitrite (Negative) Urine Bilirubin (Negative) Urine Urobilinogen (0.2) mg/dL Ur Leukocyte Esterase (Negative) U Hyaline Cast (Auto) (0-2) /LPF Urine Microscopic RBC (0-5) /HPF Urine Microscopic WBC (0-5) /HPF Ur Epithelial Cells (None Seen) /HPF Urine Bacteria (None Seen) /HPF Urine Culture Reflexed (NO) Influenza Type A Ag (NEGATIVE) Influenza Type B Ag (NEGATIVE) RSV (PCR) (NEGATIVE) SARS-CoV-2 (PCR) (NEGATIVE) Radiology Exams: Radiology Procedures Category Date Time Status CAROTID BILATERAL [US] Stat Exams 03/08/24 10:46 Taken CHEST 1 VIEW (PORTABLE) Stat Exams 03/07/24 16:50 Completed HEAD WITHOUT CONTRAST [CT] Stat Exams 03/07/24 16:51 Completed MRI BRAIN W/O CONTRAST [MRI] Routine Exams 03/08/24 15:00 Ordered Assessment/Plan (1) Vestibular neuritis Current Visit: Yes Status: Acute Assessment & Plan: Dizziness versus vertigo most likely this is vestibular neuritis after her recent URI, in agreement with evaluation by neurology. Her facial numbness and her severe diffuse lethargy do not quite fit with this, but also do not fit with stroke. Patient does not have any stroke risk factors other than her high blood pressure. Supportive care PRN meclizine Observe overnight with neurochecks Get MRI Per neurology recommendations, not getting any further stroke workup unless MRI is positive If MRI negative, can discharge home with ENT follow-up in a few weeks if not resolving. PRN Zofran 03/08: -symptoms improving, MRI pending -Carotid showing Minimal calcified plaquing left carotid bulb. Remaining left and right carotid arteries of the neck are widely patent. Velocity measurements and ratios also negative for hemodynamically significant flow-limiting stenosis. Code(s): H81.20 - VESTIBULAR NEURONITIS, UNSPECIFIED EAR (2) Dizziness Current Visit: Yes Status: Acute Assessment & Plan: -see above Code(s): R42 - DIZZINESS AND GIDDINESS (3) Hypertension Current Visit: Yes Status: Acute Code(s): I10 - ESSENTIAL (PRIMARY) HYPERTENSION (4) Type 2 diabetes mellitus Current Visit: Yes Status: Acute Assessment & Plan: -ADA diet Give Lantus 20 units QHS (8 decreased from her 30 units QHS normal dosing because of decreased p.o. intake in the hospital) Start moderate dose sliding scale insulin (5) Hypokalemia Current Visit: Yes Status: Acute Assessment & Plan: potassium 3.1 on arrival. Likely secondary to her use of HCTZ. Given K-Dur 40 mEq p.o. x 1 Check BMP in the morning 03/08: -Potassium level at 3.4, will give 40meq, then start on 20mg daily with use of HCTZ Code(s): E87.6 - HYPOKALEMIA
--- NOTE | 2024-03-08 11:48 | XRAY ---
Indication: Dizziness and confusion. Two-dimensional sonogram and color Doppler imaging carotid arteries of the neck performed. Comparison: None Examination right carotid circulation demonstrates widely patent common carotid, carotid bulb, internal carotid, and external carotid arteries. PSV CCA is 54 cm/s. PSV ICA is 69 cm/s. ICA/CCA ratio is 1.3. Normal antegrade vertebral artery flow. Examination left carotid circulation demonstrates minimal eccentric calcified plaquing at the level of the bulb. Otherwise widely patent common carotid, internal carotid, and external carotid arteries. PSV CCA is 81 cm/s. PSV ICA is 73 cm/s. ICA/CCA ratio is 0.9. Normal antegrade vertebral artery flow. Impression: Minimal calcified plaquing left carotid bulb. Remaining left and right carotid arteries of the neck are widely patent. Velocity measurements and ratios also negative for hemodynamically significant flow-limiting stenosis.
[2024-03-08] MEDS: VALIUM 10 MG/2 ML SYRINGE IV ONE (14:33)
--- NOTE | 2024-03-09 11:01 | XRAY ---
Indication: Dizziness and headache. Negative recent CT head exam. Initial CT head without contrast performed. Then conventional contrast enhanced CTA head performed using 80 cc Isovue 370 contrast. 2-D sagittal and coronal reformatted images obtained. Additional 3-D reformatted images obtained using separate workstation. CT head without contrast again demonstrates age-appropriate global atrophy and tiny remote lacunar infarct left basal ganglia. No acute intracranial hemorrhage, abnormal extra-axial fluid collection, or mass effect. Fourth ventricle is midline without hydrocephalus. Jones-white matter differential preserved. Bony calvarium intact. Visualized paranasal sinuses and mastoid air cells are clear. CTA demonstrates normal course and caliber to the distal internal carotid arteries without critical stenosis, obstruction, or AV malformation. Normal carotid terminus with normal branching A1 and M1 segments bilaterally. More distal anterior cerebral, middle cerebral, anterior communicating arteries are normal in CTA appearance. Posterior circulation demonstrates normal CTA appearance to the left/right distal vertebral, basilar, left/right posterior cerebral, left/right superior cerebellar, and left/right anterior-inferior cerebellar arteries. Venous drainage/sinuses are unremarkable. Brain parenchyma is negative for abnormal enhancing intra-or extra-axial mass. Impression: 1. Continued nonacute CT head without contrast exam again with remote lacunar infarct left basal ganglia. 2. Normal CTA head with contrast exam.
[2024-03-09] MEDS: Klor Con PO SCH (11:33)
--- NOTE | 2024-03-09 12:23 | PCM.DS ---
Discharge Summary Date of Admission: 03/07/24 21:22 Date of Discharge: 03/09/24 Admitting Physician: JOSE DE JESUS HENRIQUEZ MD Primary Care Provider: DERICK,SAMREEN Allergies Allergies clonazepam [From Klonopin] Allergy (Verified 07/30/22 11:35) ciprofloxacin Adverse Reaction (Severe, Verified 07/30/22 11:35) Joint Aches effects mobility levofloxacin [From Levaquin] Adverse Reaction (Severe, Verified 07/30/22 11:35) Swelling of Joints affects mobility Hospital Summary - Hospital Course Hospital Course: Ms. Engel is a 53-year-old female with a pmhx of diabetes, hypertension, chronic headaches,admitted 03/07/24 after experiencing an episode of dizziness and unsteady gait after recent upper respiratory infection. Neurology consulted with recommendations for MRI which patient was unable to tolerate. CTA performed with no acute abnormalities. Dizziness and transient numbness of right face has resolved. Patient has been cleared by neurology. Advised follow up with PCP/ENT. Most likely this is vestibular neuritis after recent URI. Discharge Note New Diagnosis: vestibular neuritis New Medications: meclizine Follow Up: PCP Latest Assessment & Plan (1) Vestibular neuritis Current Visit: Yes Status: Acute Assessment & Plan: Dizziness versus vertigo most likely this is vestibular neuritis after her recent URI, in agreement with evaluation by neurology. Her facial numbness and her severe diffuse lethargy do not quite fit with this, but also do not fit with stroke. Patient does not have any stroke risk factors other than her high blood pressure. Supportive care PRN meclizine Observe overnight with neurochecks Get MRI Per neurology recommendations, not getting any further stroke workup unless MRI is positive If MRI negative, can discharge home with ENT follow-up in a few weeks if not resolving. PRN Zofran 03/08: -symptoms improving, MRI pending -Carotid showing Minimal calcified plaquing left carotid bulb. Remaining left and right carotid arteries of the neck are widely patent. Velocity measurements and ratios also negative for hemodynamically significant flow-limiting stenosis. Code(s): H81.20 - VESTIBULAR NEURONITIS, UNSPECIFIED EAR (2) Dizziness Current Visit: Yes Status: Acute Assessment & Plan: -see above Code(s): R42 - DIZZINESS AND GIDDINESS (3) Hypertension Current Visit: Yes Status: Acute Code(s): I10 - ESSENTIAL (PRIMARY) HYPERTENSION (4) Type 2 diabetes mellitus Current Visit: Yes Status: Acute Assessment & Plan: -ADA diet Give Lantus 20 units QHS (8 decreased from her 30 units QHS normal dosing b ecause of decreased p.o. intake in the hospital) Start moderate dose sliding scale insulin (5) Hypokalemia Current Visit: Yes Status: Acute Assessment & Plan: potassium 3.1 on arrival. Likely secondary to her use of HCTZ. Given K-Dur 40 mEq p.o. x 1 Check BMP in the morning 03/08: -Potassium level at 3.4, will give 40meq, then start on 20mg daily with use of HCTZ Code(s): E87.6 - HYPOKALEMIA I spent 35 minutes [id number] with the patient on the day of discharge performing discharge exam, discussing hospital stay and discharge instructions with patient and caregivers, preparation of discharge records, prescriptions & referral forms and addressing any questions/concerns the patient had as documented above. - Vitals & Intake/Output Vital Signs: Vital Signs Temperature 97.4 F 03/09/24 07:24 Pulse Rate 82 03/09/24 07:24 Respiratory Rate 12 03/09/24 07:24 Blood Pressure 101/64 03/09/24 07:24 O2 Sat by Pulse Oximetry 98 03/09/24 07:24 Intake & Output: Intake & Output 03/07/24 03/08/24 03/09/24 03/10/24 11:59 11:59 11:59 11:59 Intake Total 450 1600 Balance 450 1600 Weight 89.8 kg - Lab Result Diagrams: 03/08/24 05:00 03/08/24 13:52 Lab Results-Last 24 Hrs: Lab Results-Last 24 Hours 03/08/24 Range/Units 13:52 Potassium 3.7 (3.5-5.1) mmol/L Micro Results-Entire Visit: Accuchecks Date 03/09/24 Date 03/09/24 Date 03/08/24 Date 03/08/24 Time 11:43 Time 07:23 Time 21:00 - Radiology Exams Ordered Rad Exams-Entire Visit: Radiology Procedures Category Date Time Status CAROTID BILATERAL [US] Stat Exams 03/08/24 10:46 Completed CHEST 1 VIEW (PORTABLE) Stat Exams 03/07/24 16:50 Completed CTA HEAD W AND/OR WO CONTRAST [CT] Routine Exams 03/09/24 08:00 Completed HEAD WITHOUT CONTRAST [CT] Stat Exams 03/07/24 16:51 Completed Discharge Exam General Appearance: no apparent distress Neurologic Exam: alert, oriented x 3, cooperative Eye Exam: PERRL Ears, Nose, Throat Exam: moist mucous membranes Neck Exam: normal inspection Respiratory Exam: normal breath sounds, lungs clear Cardiovascular Exam: regular rate/rhythm, normal heart sounds Gastrointestinal/Abdomen Exam: soft, normal bowel sounds Pelvic Exam: deferred Rectal Exam: deferred Back Exam: normal inspection Extremity Exam: normal inspection Skin Exam: pale Final Diagnosis/Problem List - Final Discharge Diagnosis/Problem (1) Vestibular neuritis Current Visit: Yes Status: Acute Code(s): H81.20 - VESTIBULAR NEURONITIS, UNSPECIFIED EAR (2) Dizziness Current Visit: Yes Status: Acute Code(s): R42 - DIZZINESS AND GIDDINESS (3) Hypertension Current Visit: Yes Status: Acute Code(s): I10 - ESSENTIAL (PRIMARY) HYPERTENSION (4) Type 2 diabetes mellitus Current Visit: Yes Status: Acute (5) Hypokalemia Current Visit: Yes Status: Acute Code(s): E87.6 - HYPOKALEMIA - Discharge Disposition: Home, Self-Care Condition: Stable Prescriptions: New Meclizine HCl 25 mg PO TID PRN 30 Days #30 tablet PRN Reason: Dizziness Continue hydroCHLOROthiazide [Hydrochlorothiazide] 12.5 mg PO DAILY Montelukast Sodium 10 mg [Singulair 10 MG] 10 mg PO DAILY Amlodipine Besylate/Benazepril [Amlodipine-Benazepril 5-20 mg] 1 cap PO DAILY Empagliflozin [Jardiance] 10 mg PO DAILY Metoprolol Succinate 50 mg [Toprol Xl 50 MG] 50 mg PO DAILY Pregabalin 150 mg PO BID Duloxetine HCl 20 mg PO DAILY Insulin Degludec [Tresiba Flextouch U-200] 30 units SQ HS Semaglutide [Ozempic] 1 mg SQ WEEKLY Follow up with: SAMREEN SEPULVEDA MD [Primary Care Provider] - 03/16/24 2:30 pm ([place] )
[2024-03-09 13:11] VITALS: BP 124/80; PULSE 80; RESP 18; TEMP 97.6; O2SAT 97
== END 2024-03-09 13:20 | disposition home or self-care (01) ==
LOC: ED 16:25 → MED SURG 21:22
PROVIDERS: ADMIT Internal Medicine; ATTEND Internal Medicine
DX: H81.20 Vestibular neuronitis, unspecified ear (principal); I10 Essential (primary) hypertension; E11.9 Type 2 diabetes mellitus without complications; E87.6 Hypokalemia; R51.9 Headache, unspecified; E78.5 Hyperlipidemia, unspecified; Z79.899 Other long term (current) drug therapy; Z59.811 Housing instability, housed, with risk of homelessness
CPT/HCPCS: 0241U; 36000; 36415; 70450; 70496; 71045; 80048; 80053; 81001; 83036; 83605; 83735; 84132; 84484; 85025; 85027; 93005; 93041; 93880; 96360; 99285; Q3014; 93268; J1200; J1650; J3360; A9270-GY; G0378